=== PATIENT | male | born 1935 | race Two or more races ===

== ENCOUNTER → 2017-09-27 | Outpatient (CLI) | payer MEDICARE ==
[~2017-09-27] MED LIST: BENADRYL25 M1 PO; CLARITHROMYCIN500 MG PO; CLINDAMYCIN HC300 MG PO; DEXILANT60 MG PO; DICLOFENAC SODI75 MG PO; ETODOLAC400 MG PO; FUROSEMIDE40 MG PO; NEXIUM40 MG PO; SANTYL15 GM; SPIRONOLACTONE25 MG PO; SUCRALFATE1 GM PO; TAMSULOSIN HCL0.4 MG PO; TEMAZEPAM15 MG PO; VOLTAREN100 GM TOP; Z.0.ALTACE5 MG PO; Z.0.CELEBREX200 MG PO; Z.0.LASIX40 MG PO; Z.0.NEXIUM40 MG PO
--- NOTE | 2017-09-27 13:43 | Diagnostic Imaging Report ---
PROCEDURE: Frontal and lateral views of the chest. COMPARISON: 11/01/2012 INDICATIONS: COUGH FINDINGS: Lines/tubes: None. Lungs: The lungs are well inflated and clear. There is no evidence of pneumonia or pulmonary edema. Pleura: There is no pleural effusion or pneumothorax. Heart and mediastinum: The cardiac silhouette is borderline in size. Aorta is calcified and markedly tortuous. Bones: No acute bony abnormality. Degenerative changes of thoracic spine. IMPRESSION: 1. No acute cardiopulmonary disease. Dictated by: Matty Go M.D. on 09/27/2017 at 13:45 Electronically approved by: Matty Go M.D. on 09/27/2017 at 13:45
== END ==
LOC: RAD 13:13
DX: R05 Cough (principal); R09.89 Other specified symptoms and signs involving the circulatory and respiratory systems
CPT/HCPCS: 71046

== ENCOUNTER → 2018-01-06 | Outpatient (CLI) | payer MEDICARE ==
--- NOTE | 2018-01-06 14:00 | Diagnostic Imaging Report ---
PROCEDURE: X-RAY CHEST, TWO VIEWS COMPARISON: Patients [facility], , CHEST 2 VIEWS, 09/27/2017, 14:24. INDICATIONS: CHRONIC COUGH FINDINGS: LUNGS: Mild hyperinflated and stable. Pulmonary vascular markings are normal. PLEURA: No effusions or pneumothorax. HEART \T\ MEDIASTINUM: Stable cardiomegaly and marked aortic ectasia.. BONES \T\ SOFT TISSUES: No acute findings. CONCLUSION: Mild stable pulmonary hyperinflation. No acute cardiopulmonary process. Dictated by: Nabeel Paula M.D. on 01/06/2018 at 14:05 Electronically approved by: Nabeel Paula M.D. on 01/06/2018 at 14:05
== END ==
LOC: RAD 13:10
DX: R05 Cough (principal); J44.9 Chronic obstructive pulmonary disease, unspecified
CPT/HCPCS: 71046

== ENCOUNTER 2018-01-30 20:53 | Emergency (ER) | payer MEDICARE ==
[~2018-01-30] VITALS: Ht 182.9 cm; Wt 91.6 kg
== END 2018-01-30 22:00 | disposition home or self-care (01) ==
LOC: ER 20:53
DX: S61.412A Laceration without foreign body of left hand, initial encounter (principal); W22.8XXA Striking against or struck by other objects, initial encounter; Y92.008 Other place in unspecified non-institutional (private) residence as the place of occurrence of the external cause; K21.9 Gastro-esophageal reflux disease without esophagitis
CPT/HCPCS: 99283

== ENCOUNTER → 2019-01-13 | Outpatient (CLI) | payer MEDICARE, OTHER ==
[~2019-01-13] MED LIST changes: +IOPAMIDOL 370 MG/ML 200 ML INFUS..BTL INJ ONE; +SODIUM CHLORIDE 0.9% 50ML 50 ML ONE
[2019-01-13 13:16] LABS: BLOOD UREA NITROGEN 16 mg/dL (7-26); BUN/CREATININE RATIO 21 (6-25); CREATININE, SERUM 0.76 mg/dL (0.72-1.25); EST GLOMERULAR FILTRATION RATE > 60 ML/MIN (60-)
--- NOTE | 2019-01-13 13:45 | Diagnostic Imaging Report ---
EXAMINATION: CHEST 2 VIEWS INDICATION: Shortness of breath COMPARISON: None FINDINGS: LINES/TUBES:None LUNGS:Bilateral upper lobe predominant emphysematous changes. No focal consolidation or pulmonary edema. PLEURA:No pleural effusion or pneumothorax. MEDIASTINUM: The heart size is at the upper limits of normal. Atherosclerotic calcifications of the tortuous thoracic aorta. BONES/SOFT TISSUES:No acute osseous injury. ABDOMEN:No free air under the diaphragm. IMPRESSION: Hyperinflated lungs with upper lobe emphysematous changes. No focal pneumonia or pulmonary edema. Signed by: Abel Sanchez MD on 01/13/2019 1:42 PM
--- NOTE | 2019-01-13 14:26 | Diagnostic Imaging Report ---
EXAM: CT Abdomen and Pelvis WITH intravenous contrast INDICATION: Abdominal pain COMPARISON: None. TECHNIQUE: Abdomen and pelvis were scanned utilizing a multidetector helical scanner from the lung base to the pubic symphysis after administration of IV contrast. Coronal and sagittal reformations were obtained. Routine protocol was performed. Scan was performed when during portal venous phase. IV CONTRAST: 100mL of Isovue 370 ORAL CONTRAST: Water COMPLICATIONS: None RADIATION DOSE: Total DLP: 608.8 mGy*cm Dose modulation, iterative reconstruction, and/or weight based adjustment of the mA/kV was utilized to reduce the radiation dose to as low as reasonably achievable. FINDINGS: LOWER THORAX: No lung base consolidation. Multichamber cardiomegaly. Tortuous thoracic aorta. HEPATOBILIARY: Hepatic steatosis. No focal liver lesions. No biliary ductal dilation. Status post cholecystectomy. SPLEEN: No splenomegaly. PANCREAS: No focal masses or ductal dilatation. ADRENALS: No adrenal nodules. KIDNEYS/URETERS: No hydronephrosis, stones, or solid mass lesions. PELVIC ORGANS/BLADDER: Prostatomegaly to 5.3 cm. The bladder appears unremarkable. PERITONEUM / RETROPERITONEUM: No free air or fluid. LYMPH NODES: No lymphadenopathy. VESSELS: Atherosclerotic calcifications of the nonaneurysmal abdominal aorta and major branches. GI TRACT: Colonic diverticulosis. No CT evidence of diverticulitis. No abnormal bowel wall thickening. No bowel obstruction. Status post appendectomy. BONES AND SOFT TISSUES: Prominent degenerative changes of the lumbar spine. Grade 1 retrolisthesis at L1-2, L2-3, L34. No acute osseous injury or suspicious lytic or blastic lesions. Mild diffuse muscular atrophy. Prominent bilateral inguinal lymph nodes not meeting size criteria for lymphadenopathy. IMPRESSION: No acute findings in the abdomen or pelvis. Colonic diverticulosis with no CT evidence of diverticulitis. Hepatic steatosis. Prostatomegaly. Signed by: Abel Sanchez MD on 01/13/2019 2:23 PM
== END ==
LOC: CT 12:18
PROVIDERS: ATTEND Internal Medicine Gastroenterology
DX: R06.02 Shortness of breath (principal); R10.30 Lower abdominal pain, unspecified; K57.90 Diverticulosis of intestine, part unspecified, without perforation or abscess without bleeding; K76.0 Fatty (change of) liver, not elsewhere classified; N40.0 Benign prostatic hyperplasia without lower urinary tract symptoms
CPT/HCPCS: 36415; 71046; 74177; 82565; 84520; Q9967

== ENCOUNTER → 2019-03-21 | Outpatient (CLI) | payer MEDICARE, OTHER ==
[~2019-03-21] MED LIST changes: -IOPAMIDOL 370 MG/ML 200 ML INFUS..BTL INJ ONE; -SODIUM CHLORIDE 0.9% 50ML 50 ML ONE
--- NOTE | 2019-03-21 13:11 | Diagnostic Imaging Report ---
EXAMINATION: CHEST 2 VIEWS INDICATION: Bronchitis COMPARISON: Chest radiograph of 01/13/2019 FINDINGS: LINES/TUBES:None LUNGS:The lungs are hyperinflated. Mild biapical pleural parenchymal thickening/scarring. No focal consolidation or pulmonary edema. PLEURA:No pleural effusion or pneumothorax. MEDIASTINUM:The cardiomediastinal silhouette appears normal in size and shape. Atherosclerotic calcifications of the tortuous thoracic aorta. BONES/SOFT TISSUES:No acute osseous injury. ABDOMEN:No free air under the diaphragm. IMPRESSION: Hyperinflated lungs. No focal pneumonia or pulmonary edema. Signed by: Abel Sanchez MD on 03/21/2019 1:07 PM
== END ==
LOC: RAD 11:47
DX: R09.89 Other specified symptoms and signs involving the circulatory and respiratory systems (principal); J20.9 Acute bronchitis, unspecified
CPT/HCPCS: 71046

== ENCOUNTER → 2019-04-21 | Outpatient (CLI) | payer MEDICARE, OTHER | LOC: RAD 09:24 | DX: R60.9 Edema, unspecified (principal) | CPT/HCPCS: 93971 ==

== ENCOUNTER 2019-05-12 18:10 | Inpatient (IN) | payer MEDICARE, OTHER ==
[~2019-05-12] VITALS: Ht 182.9 cm; Wt 81.6 kg
[2019-05-12] MEDS ORDERED: ACETAMINOPHEN 325 MG TAB PO ONE (19:19)
[2019-05-12] MEDS ORDERED: CEFEPIME 1GM/NS 0.9% 50 ML 50 ML IV SCH (19:26)
[2019-05-12] MEDS ORDERED: AZITHROMYCIN 500MG/NS 250 ML 250 ML IV ONE (19:26)
[2019-05-12 19:28] LABS: BASOPHILS # (AUTO) 0.1 (0.0-0.1); BASOPHILS % 0.7 % (0.0-1.0); EOSINOPHILS # (AUTO) 0.1 (0.0-0.4); EOSINOPHILS % 1.7 % (0.0-6.0); HEMATOCRIT 35.7 % (38.2-49.6); HEMOGLOBIN 11.2 g/dL (14.0-18.0); LYMPHOCYTES # (AUTO) 0.6 (1.0-3.2); LYMPHOCYTES % 8.1 % (18.0-39.1); MEAN CORPUSCULAR HEMOGLOBIN 29.3 pg (28-32); MEAN CORPUSCULAR HGB CONC 31.4 g/dL (31-35); MEAN CORPUSCULAR VOLUME 93.5 fL (81-99); MONOCYTES # (AUTO) 0.9 (0.2-0.8); MONOCYTES % 11.2 % (4.4-11.3); NEUTROPHILS % 77.6 % (38.7-80.0); PLATELET COUNT 137 x10e3/uL (140-360); RED BLOOD COUNT 3.82 x10e6/uL (4.3-5.7); RED CELL DISTRIBUTION WIDTH 14.3 % (11.7-14.4)
[2019-05-12 19:40] LABS: ALANINE AMINOTRANSFERASE 20 IU/L (0-55); ALBUMIN 3.4 g/dL (3.5-5.0); ALBUMIN/GLOBULIN RATIO 1.2 (0.8-2.0); ALKALINE PHOSPHATASE 99 IU/L (40-150); ANION GAP 13.3 mmol/L (8-16); BLOOD UREA NITROGEN 12 mg/dL (7-26); BUN/CREATININE RATIO 16 (6-25); CALCIUM 9.1 mg/dL (8.4-10.2); CARBON DIOXIDE 28 mmol/L (22-29); CHLORIDE 98 mmol/L (98-107); CREATININE, SERUM 0.75 mg/dL (0.72-1.25); EST GLOMERULAR FILTRATION RATE > 60 ML/MIN (60-); GLUCOSE 90 mg/dL (74-118); POTASSIUM 4.3 mmol/L (3.5-5.1); SODIUM 135 mmol/L (136-145)
[2019-05-12] MEDS ORDERED: SODIUM CHLORIDE 0.9% 1000ML 1,000 ML IV SCH ×2 (19:45→21:51)
[2019-05-12] MEDS ORDERED: ALBUTEROL/IPRATROPIUM 3 ML NEB NEB ONE (19:45)
[2019-05-12] MEDS ORDERED: ACETAMINOPHEN 1000 MG/100 ML IV STA (20:30)
[2019-05-12] MEDS ORDERED: FUROSEMIDE INJ 10 MG/ML 2 ML VIAL ONE (20:38)
[2019-05-12] MEDS ORDERED: FUROSEMIDE INJ 10 MG/ML 4 ML VIAL IV ONE (20:45)
[2019-05-12] MEDS ORDERED: ACETAMINOPHEN 1000 MG/100 ML 100 ML IV ONE (20:45)
--- NOTE | 2019-05-12 20:49 | Diagnostic Imaging Report ---
EXAMINATION: CHEST SINGLE (PORTABLE) INDICATION: Sepsis COMPARISON: 03/21/2019. FINDINGS: LINES/TUBES:None LUNGS:The lungs are hyperinflated. Mild biapical pleural parenchymal thickening/scarring are again noted. New multifocal patchy consolidations are seen in both lungs likely representing pneumonia. PLEURA:No pleural effusion or pneumothorax. MEDIASTINUM:The cardiomediastinal silhouette appears normal in size and shape. Atherosclerotic calcifications of the tortuous thoracic aorta. BONES/SOFT TISSUES:No acute osseous injury. ABDOMEN:No free air under the diaphragm. IMPRESSION: New multifocal patchy consolidations are seen in both lungs compatible with pneumonia. Signed by: Adan Swanson MD on 05/12/2019 8:45 PM
[2019-05-12 20:51] LABS: CLARITY,URINE SL CLOUDY (CLEAR); COLOR,URINE YELLOW (YELLOW); LEUKOCYTE ESTERASE ,URINE NEGATIVE (NEGATIVE); NITRITE,URINE NEGATIVE (NEGATIVE); PROTEIN,URINE DIPSTICK NEGATIVE (NEGATIVE); URINE UROBILINOGEN 0.2 mg/dL (0.2 - 1)
[2019-05-12 20:52] LABS: BILIRUBIN,URINE NEGATIVE (NEGATIVE); KETONES,URINE 1+ (NEGATIVE)
[2019-05-12 21:04] LABS: BACTERIA,URINE FEW /HPF; EPITHELIAL CELLS,URINE MODERATE /LPF; RBC,URINE 0-5 /HPF (0-5); TRANSITIONAL EPI CELLS,URINE FEW
[2019-05-12] MEDS ORDERED: VANCOMYCIN 1GM/NS 250 ML 250 ML IV ONE (21:29)
[2019-05-12] MEDS ORDERED: ONDANSETRON HCL INJ 2MG/ML 2ML 2 MG/ML VIAL IV PRN (22:00)
[2019-05-12] MEDS ORDERED: CEFEPIME 2 GM/NS 0.9% 100 ML 100 ML IV SCH (22:00)
[2019-05-12] MEDS ORDERED: VANCOMYCIN 1GM/NS 250 ML 250 ML IV SCH (22:00)
[2019-05-12 22:22] LABS: CREATINE KINASE MB 2.7 ng/mL (0-5.0)
[2019-05-12] MEDS: OSELTAMIVIR PHOSPHATE 75 MG CAP PO SCH (22:40)
[2019-05-13] VITALS (20 sets, daily range): BP systolic 74–127; BP diastolic 46–84
[2019-05-13] MEDS ORDERED: LISINOPRIL2.5 MG PO (00:47)
[2019-05-13] MEDS ORDERED: MYRBETRIQ25 MG PO (00:47)
[2019-05-13] MEDS ORDERED: DEXILANT60 MG PO (00:47)
[2019-05-13] MEDS ORDERED: CEFUROXIME250 MG PO (00:47)
--- NOTE | 2019-05-13 01:00 | NUR ---
Pt refusing to wear bipap stating "it's too much pressure & hurts nose." RT to come look at bipap. Pt satting 98%on 4L NC. States he "feels better"
--- NOTE | 2019-05-13 03:50 | NUR ---
Page out to Dr. Toney regarding patient status. Pt breathing 40 rpm, tachy in the 110s and refusing to stay sitting in the chair. Pt audibly wheezing and breathing shallow. Pt placed back on bipap Addendum: 05/13/19 at 0428 by Lg Aguilar RN once this started happening. 0500- Dr. Toney ordered 40 mg Lasix IVP now, 0.5 mg ativan PO now, and to stop IV fluids. Monitor patient and call rapid response if pt doesn't respond to treatment. Pt states he does not want to be intubated and does not want compressions done if needed.
[2019-05-13] MEDS ORDERED: FUROSEMIDE INJ 10 MG/ML 4 ML VIAL IV ONE ×2 (04:15→05:20)
[2019-05-13] MEDS ORDERED: LORAZEPAM 0.5 MG TAB PO ONE (04:15)
--- NOTE | 2019-05-13 05:00 | NUR ---
0445-Dr. Toney called to update on pt condition. Wants RN to discuss code status with son and decide if need to transfer to ICU or not 0500-Son wants pt to "be saved," wants us to do everything we can Dr. Toney notified. Dr. Toney said to transfer to ICU, consult Dr. Aparicio, and put in coude tip catheter. Also 40 mg iVP lasix again. Pt still breathing in 40s and anxious. 0530- Falk insertion unsuccessful due to unretractable foreskin. 0545-Pt resting, breathing rate in 20s, HR in 70s. Pt appears comfortable on bipap. Dr. Toney notified of pt's condition, ordered to keep in IMCU and consult Dr. Aparicio. aware of unsuccessful falk attempt, no new order noted. Pt's son at bedside and updated.
[2019-05-13 05:17] LABS: BASOPHILS # (AUTO) 0.1 (0.0-0.1); BASOPHILS % 0.7 % (0.0-1.0); EOSINOPHILS # (AUTO) 0.1 (0.0-0.4); EOSINOPHILS % 0.6 % (0.0-6.0); HEMATOCRIT 38.6 % (38.2-49.6); LYMPHOCYTES % 8.1 % (18.0-39.1); MEAN CORPUSCULAR HEMOGLOBIN 29.8 pg (28-32); MEAN CORPUSCULAR HGB CONC 31.1 g/dL (31-35); MEAN CORPUSCULAR VOLUME 95.8 fL (81-99); MONOCYTES # (AUTO) 1.2 (0.2-0.8); MONOCYTES % 9.5 % (4.4-11.3); NEUTROPHILS # (AUTO) 10.1 (2.1-6.9); NEUTROPHILS % 80.6 % (38.7-80.0); PLATELET COUNT 168 x10e3/uL (140-360); RED BLOOD COUNT 4.03 x10e6/uL (4.3-5.7); RED CELL DISTRIBUTION WIDTH 14.4 % (11.7-14.4)
[2019-05-13 05:38] LABS: ALANINE AMINOTRANSFERASE 29 IU/L (0-55); ALBUMIN 3.7 g/dL (3.5-5.0); ALBUMIN/GLOBULIN RATIO 1.1 (0.8-2.0); ALKALINE PHOSPHATASE 110 IU/L (40-150); ANION GAP 17.3 mmol/L (8-16); BLOOD UREA NITROGEN 12 mg/dL (7-26); BUN/CREATININE RATIO 14 (6-25); CALCIUM 9.1 mg/dL (8.4-10.2); CARBON DIOXIDE 29 mmol/L (22-29); CHLORIDE 97 mmol/L (98-107); CREATININE, SERUM 0.88 mg/dL (0.72-1.25); EST GLOMERULAR FILTRATION RATE > 60 ML/MIN (60-); GLUCOSE 117 mg/dL (74-118); POTASSIUM 4.3 mmol/L (3.5-5.1); SODIUM 139 mmol/L (136-145)
[2019-05-13] MEDS ORDERED: FUROSEMIDE INJ 10 MG/ML 4 ML VIAL ONE (05:51)
[2019-05-13] MEDS: CEFEPIME 2 GM/NS 0.9% 100 ML 100 ML IV SCH ×4 (06:00→17:19)
--- NOTE | 2019-05-13 06:41 | NUR ---
Consult called to Dr. Aparicio's answering service. Awaiting call back.
[2019-05-13 08:34] LABS: ABG HCO3 31 mmol/L (23-28); ABG PCO2 53 mmHg (41-51); ABG PH 7.38 (7.31-7.41); ABG PO2 80 mmHg (80-105)
--- NOTE | 2019-05-13 08:48 | NUR ---
Per Dr Toney, confirmed Dr Aparicio aware of consult. PIV access per [facility]. Plan to move patient to ICU. Supine in recliner and states understanding that he must decrease activity to decrease the exertional dyspnea. Son, Paris Felipe (Joe) at bedside assisting with patient care.
[2019-05-13] MEDS: FUROSEMIDE INJ 10 MG/ML 4 ML VIAL IV SCH ×2 (09:22→20:49)
[2019-05-13] MEDS: OSELTAMIVIR PHOSPHATE 75 MG CAP PO SCH ×2 (09:22→17:20)
--- NOTE | 2019-05-13 09:46 | Diagnostic Imaging Report ---
EXAMINATION: CHEST SINGLE (PORTABLE) INDICATION: Pneumonia. COMPARISON: Chest radiograph 05/12/2019. FINDINGS: Exam is somewhat limited by patient positioning and portable technique. LINES/TUBES:None LUNGS:The lungs are hyperinflated. Mild biapical pleural parenchymal thickening/scarring. Central vascular congestion with mild perihilar and interstitial opacities. Patchy right basilar opacity. PLEURA:No pleural effusion or pneumothorax. MEDIASTINUM:The cardiomediastinal silhouette appears normal in size and shape. Atherosclerotic calcifications of the tortuous thoracic aorta. BONES/SOFT TISSUES:No acute osseous injury. ABDOMEN:No free air under the diaphragm. IMPRESSION: Hyperinflated lungs. Mild interstitial edema. Patchy opacities in the right lower lung could represent alveolar edema, atelectasis, or pneumonia in the appropriate clinical setting. Signed by: Dr. Lakia Salvador MD on 05/13/2019 9:43 AM
[2019-05-13] MEDS: VANCOMYCIN 1GM/NS 250 ML 250 ML IV SCH ×2 (10:37→21:55)
[2019-05-13] MEDS: ACETAMINOPHEN 325 MG TAB PO PRN (11:39)
[2019-05-13] MEDS ORDERED: HYDROCODONE/APAP 5MG-325MG TAB PO PRN (12:00)
[2019-05-13] MEDS: ALBUTEROL/IPRATROPIUM 3 ML NEB NEB SCH ×3 (13:10→22:30)
--- NOTE | 2019-05-13 14:18 | NUR ---
Report given to RAUL Lugo for Room 195; patient transferred via wheeled recliner per his request.
[2019-05-13 14:42] LABS: CREATINE KINASE MB 2.7 ng/mL (0-5.0)
--- NOTE | 2019-05-13 15:36 | History and Physical ---
CHIEF COMPLAINT: Worsening cough and chest congestion. HISTORY OF PRESENT ILLNESS: This is an 83-year-old [place] man, who presents to [facility] with a 3-4 day history of worsening cough and chest congestion. The patient states he has chronic cough. It became much worse this week. The patient states he did receive influenza vaccine this season. The patient underwent a nasal swab for influenza type A and B antigen was found to be positive for type A antigen influenza. The patient also was found to have white blood cell count of 7600 with 77% segmented neutrophils. When the white blood cell count was checked 8 hours later it had increased to 12,500 and 80% segmented neutrophils. The patient was found to have B-type natriuretic peptide level of 167. Chest x-ray performed in the emergency room revealed bilateral multifocal patchy consolidations. The patient was admitted to the intermediate care unit. REVIEW OF SYSTEMS: GENERAL: The patient's weight is stable. He has had fever the last couple of days. No chills. HEENT: No headaches. No vision changes. CARDIOVASCULAR/RESPIRATORY: The patient has chronic cough that became much worse last 3-4 days. Denies any chest pain or tightness. GI: No nausea, vomiting, or constipation. : No UTI symptoms, but he does have BPH. Neuromuscular: No limb weakness. He has chronic swelling in his lower extremities. ALLERGIES: HYDROMORPHONE. HOME MEDICATIONS: 1. Dexilant 60 mg daily. 2. Diclofenac 75 mg b.i.d. 3. Diphenhydramine 25 mg at bedtime. 4. Nexium 40 mg daily. 5. Furosemide 40 mg daily. 6. Lisinopril 5 mg b.i.d. 7. Myrbetriq 25 mg daily. 8. Spironolactone 25 mg b.i.d. 9. Tamsulosin 0.4 mg everyday. SURGICAL HISTORY: Prostate surgery many years ago because of prostate cancer. FAMILY HISTORY: Noncontributory. SOCIAL HISTORY: He is a , lives with adult son. He is a heavy tobacco smoker, but he quit in 1983. No history of alcohol use. PAST MEDICAL HISTORY: 1. Chronic lower extremity edema secondary to venous insufficiency. 2. Benign prostatic hypertrophy. 3. Remote history of prostate cancer. 4. Bilateral knee degenerative joint disease. 5. Hypertensive heart disease. 6. GERD. 7. Hiatal hernia. PHYSICAL EXAMINATION: GENERAL: He is awake, alert, and oriented. He is short of breath. He is very pleasant on exam. His adult son is at bedside. VITAL SIGNS: Height 6 feet, weight is 180 pounds, BMI 24. INTEGUMENT: Skin is warm and dry. No pallor, jaundice, or diaphoresis. HEENT: Anterior sclerae with moist mucous membranes. NECK: Supple. No evidence of jugular venous distention. Cardiovascular: Distant heart sounds. Regular rate and rhythm. LUNGS: The patient has crackles and rhonchi in the bilateral lung soriano. ABDOMEN: Benign. EXTREMITIES: The patient has 3+ edema in bilateral lower legs, but the adult son states this is a chronic issue. NEUROLOGIC: Intact. No gross focal deficits appreciated. IMPRESSION: 1. Bilateral pneumonia. 2. Influenza type A with pneumonia. 3. Acute on chronic diastolic congestive heart failure, likely. 4. Chronic bronchitis. PLAN: 1. We will start oral Tamiflu for the patient's influenza infection. 2. Continue intravenous antibiotics for the patient's pneumonia. 3. Follow blood cultures. 4. Order echocardiogram since the patient appears to have acute on chronic diastolic heart failure. 5. Consult Cardiology. 6. Intensive care unit status. I spent 75 minutes in the care of this intensive care unit patient. MD BENJAMIN Woodson/TRACIE /[id number] SHANNAN
[2019-05-13] MEDS ORDERED: SODIUM CHLORIDE 0.9% 250ML 250 ML IV SCH (17:15)
--- NOTE | 2019-05-13 17:15 | NUR ---
Low blood pressures. Paged and spoke with Dr Toney regarding sbp's 80's. Pt does report breathing better, productive cough, and no current complaints. Orders for one time NS 250cc bolus.
[2019-05-13] MEDS ORDERED: SODIUM CHLORIDE 0.9% 250ML 250 ML ONE (17:28)
--- NOTE | 2019-05-13 19:47 | Consultation ---
DATE OF CONSULTATION: 05/13/2019 Pulmonary Consultation REASON FOR CONSULT: Shortness of breath. HISTORY OF PRESENT ILLNESS: Mr. Felipe is an 83-year-old male known to me as I was taking care of his in the hospital two years ago. He came in with shortness of breath and feeling weak with leg edema and leg swelling. Mr. Felipe is an 83-year-old male, who came to the emergency room with shortness of breath, generalized weakness, leg edema. The shortness of breath was intermittent, but getting worse when he was exerting or laying flat, it did not relieve. So, he decided to come to the emergency room. In the emergency room, the patient was tested positive for flu. He is on IV antibiotics overnight. He was in more distress. The patient underwent ABG, which showed hypercapnic respiratory failure. He was started on BiPAP. He is doing well now. He has bilateral leg edema. REVIEW OF SYSTEMS: GENERAL: Denies any fever, chills. HEAD: Denies any head trauma. ENT: Denies any earache. CVS: Denies any chest pain. RESPIRATORY: Shortness of breath. The rest of the review of systems are negative except as in HPI. PAST MEDICAL HISTORY: Hypertension, hyperlipidemia, history of prostate cancer, COPD, smoked for 30 years, but currently does not smoke. PAST SURGICAL HISTORY: Inguinal hernia repair. FAMILY AND SOCIAL HISTORY: He is currently not smoking. Started smoking around 20 years ago, smoked for 30+ years. PHYSICAL EXAMINATION: VITAL SIGNS: Temperature 100.5, pulse of 86, blood pressure 110/60. T-max of 101.2. HEENT: Head is normocephalic. NECK: Supple. CHEST: Occasional wheezing. Few crackles reduced air entry. HEART: S1-S2 audible. ABDOMEN: Soft, nontender. EXTREMITIES: Bilateral pedal edema, 3+. NEUROLOGICAL: Awake, alert. No focal neurologic deficit. LABORATORY DATA: White count of 12,000, hemoglobin 12.0, platelets 168. Chemistry is within normal limits. BNP 167.8. Chest x-ray, I have reviewed the images, showing patchy alveolar infiltrate. ASSESSMENT/PLAN: Mr. Felipe is an 83-year-old male, who presented to the emergency room with shortness of breath. Influenza tested positive. Current problems: 1. Acute hypoxic respiratory failure. 2. Pneumonia. 3. Influenza. 4. Possible heart failure. PLAN: 1. Agree with IV Lasix, cefepime, and vancomycin. Tamiflu has been started. I will add DuoNebs q.6 hours hourly. 2. Oxygen as needed to keep the O2 saturation more than or equal to 92%. The patient is slightly hypercapnic with almost normal pH. We will do BiPAP if needed. Currently, we can hold off on the BiPAP and try the nasal cannula. I thank, Dr. Toney for this consultation and report. Discussed with the patient's son at bedside. MD LAKSHMI Vaca/TRACIE /[id number]
--- NOTE | 2019-05-13 20:08 | NUR ---
Dr. Toney called to clarify orders. Ordered to consult Dr. Anderson for CHF and afib. Ordered to hold lasix if SBP< 90
--- NOTE | 2019-05-13 20:11 | NUR ---
Consult called to Dr. Chele Anderson regarding CHF and AFIB. Told that pt's HR is 90s-110s, MD stated will see him in the morning. No new orders noted.
[2019-05-14] VITALS (25 sets, daily range): BP systolic 84–122; BP diastolic 37–86
[2019-05-14] MEDS: CEFEPIME 2 GM/NS 0.9% 100 ML 100 ML IV SCH ×3 (00:52→16:40)
[2019-05-14] MEDS: LORAZEPAM 0.5 MG TAB PO PRN ×2 (02:14→17:46)
[2019-05-14] MEDS: ACETAMINOPHEN 325 MG TAB PO PRN (04:00)
[2019-05-14 05:27] LABS: BASOPHILS # (AUTO) 0.1 (0.0-0.1); BASOPHILS % 0.8 % (0.0-1.0); EOSINOPHILS % 0.5 % (0.0-6.0); HEMATOCRIT 34.7 % (38.2-49.6); HEMOGLOBIN 10.9 g/dL (14.0-18.0); LYMPHOCYTES % 17.2 % (18.0-39.1); MEAN CORPUSCULAR HEMOGLOBIN 29.3 pg (28-32); MEAN CORPUSCULAR HGB CONC 31.4 g/dL (31-35); MEAN CORPUSCULAR VOLUME 93.3 fL (81-99); NEUTROPHILS # (AUTO) 3.9 (2.1-6.9); NEUTROPHILS % 64.2 % (38.7-80.0); PLATELET COUNT 146 x10e3/uL (140-360); RED BLOOD COUNT 3.72 x10e6/uL (4.3-5.7); RED CELL DISTRIBUTION WIDTH 13.9 % (11.7-14.4)
[2019-05-14 06:05] LABS: ALANINE AMINOTRANSFERASE 26 IU/L (0-55); ALBUMIN 3.1 g/dL (3.5-5.0); ALBUMIN/GLOBULIN RATIO 1.1 (0.8-2.0); ALKALINE PHOSPHATASE 81 IU/L (40-150); ANION GAP 15.7 mmol/L (8-16); BLOOD UREA NITROGEN 12 mg/dL (7-26); BUN/CREATININE RATIO 16 (6-25); CALCIUM 8.7 mg/dL (8.4-10.2); CARBON DIOXIDE 29 mmol/L (22-29); CHLORIDE 98 mmol/L (98-107); CREATININE, SERUM 0.75 mg/dL (0.72-1.25); EST GLOMERULAR FILTRATION RATE > 60 ML/MIN (60-); GLUCOSE 99 mg/dL (74-118); POTASSIUM 3.7 mmol/L (3.5-5.1); SODIUM 139 mmol/L (136-145)
[2019-05-14] MEDS: ALBUTEROL/IPRATROPIUM 3 ML NEB NEB SCH ×3 (06:38→19:34)
--- NOTE | 2019-05-14 07:30 | Diagnostic Imaging Report ---
EXAMINATION: CHEST SINGLE (PORTABLE) COMPARISON: Chest x-ray 05/13/2019 INDICATION: ^PNEUMONIA CHF ^[id number] ^0632 ^Y DISCUSSION: Frontal view of the chest obtained at 0632 hours. HEART AND MEDIASTINUM: Stable cardiomegaly and aortic tortuosity LINES: None. LUNGS: Diffuse hyperinflation consistent with COPD. Increasing bibasilar airspace opacities. No interstitial edema PLEURA: No pleural effusion or pneumothorax. BONES AND SOFT TISSUES: No focal osseous lesion. The soft tissues are normal. IMPRESSION: Increasing bibasilar airspace opacities, either atelectasis or developing infiltrate. Stable cardiomegaly without evidence of CHF. Signed by: Dr. Nabeel Paula MD on 05/14/2019 7:26 AM
[2019-05-14] MEDS: FUROSEMIDE INJ 10 MG/ML 4 ML VIAL IV SCH ×2 (08:53→20:53)
[2019-05-14] MEDS: OSELTAMIVIR PHOSPHATE 75 MG CAP PO SCH ×2 (08:53→16:41)
[2019-05-14] MEDS: VANCOMYCIN 1GM/NS 250 ML 250 ML IV SCH ×2 (10:12→21:55)
[2019-05-14] MEDS ORDERED: SALINE 0.65% NAS SOLN 1 SPRAY BTL PRN (16:45)
--- NOTE | 2019-05-14 19:35 | Consultation ---
DATE OF CONSULTATION: 05/14/2019 Cardiology consultation. REASON FOR CONSULTATION: Heart failure. HISTORY OF PRESENT ILLNESS: This is an 83-year-old man who has a history of hypertension, congestive heart failure, prior tobacco use, and chronic lower extremity swelling, who presented to the emergency department with progressively worsening shortness of breath. Symptoms were moderate to severe in intensity, progressively worsening, worse with lying flat, associated with lower extremity edema. The patient also reports cough with mild congestion and sputum production. Upon arrival here, the patient was noted to be in hypercapnic respiratory failure, was placed on BiPAP, and received diuretics. He also tested positive for the flu. Currently, he states he is feeling better and he is on nasal cannula. REVIEW OF SYSTEMS: A 12-point review of system was conducted, is negative except as stated above in the HPI. PAST MEDICAL HISTORY: As stated above in the HPI. PAST SURGICAL HISTORY: Prostate cancer. PAST FAMILY HISTORY: Noncontributory. ALLERGIES: HYDROMORPHONE. SOCIAL HISTORY: Prior tobacco use. No current illicit drug, alcohol, or tobacco use. MEDICATIONS: See medications reconciliation form. PHYSICAL EXAMINATION: VITAL SIGNS: Temperature is 97, pulse is 78, respirations are 18, blood pressure is 107/63, oxygen saturation is 96% on 4 L nasal cannula. GENERAL: He is an elderly male, seated at bedside, in no apparent distress. Alert and oriented x3. HEAD: Normocephalic and atraumatic. EYES: Extraocular muscles are intact. Conjunctivae are clear. NECK: No JVD. No bruits. CARDIOVASCULAR: Irregularly irregular. Normal rate. Systolic murmur at the right sternal border. LUNGS: Scattered rales in bilateral lung soriano with rhonchi. ABDOMEN: Soft, nontender, nondistended. EXTREMITIES: Pitting edema. Pulses 1+. SKIN: Warm and dry and intact. NEUROLOGIC: No focal deficits noted. Cranial nerves grossly intact. PSYCHIATRIC: Normal mood and affect. LABORATORY DATA: Reviewed. White blood cell count is 6, hemoglobin is 10.9, platelets are 146, creatinine is 0.75. Troponins are negative x3. Chest x-ray shows new multifocal patchy consolidations on arrival. A 12-lead electrocardiogram not available. TELEMETRY: Monitoring revealed atrial fibrillation with premature ventricular complexes. A 2D echocardiogram showed preserved left ventricular systolic function with an estimated ejection fraction of 55% to 60% with moderate aortic stenosis. IMPRESSION: 1. Acute on chronic diastolic heart failure. 2. Moderate aortic stenosis. 3. Influenza. 4. Pneumonia. 5. Atrial fibrillation. 6. Premature ventricular complexes. 7. Prior tobacco use. 8. Hypertension, currently with hypotension. RECOMMENDATIONS: Continue diuresis. His Lasix 40 mg has been held due to hypotension. We will decrease this to 20 mg to ensure administration. Hold all antihypertensives. Continue flu and pneumonia treatment per primary team. We will need to monitor his aortic stenosis. We will obtain a 12-lead electrocardiogram. Atrial fibrillation appears to be a new diagnosis for him. He will likely need anticoagulation going forward. Chele Anderson DO BM/MODL /[id number]
[2019-05-14] MEDS ORDERED: GUAIFENESIN 600 MG TAB PO PRN (20:30)
[2019-05-15] VITALS (10 sets, daily range): BP systolic 90–147; BP diastolic 48–128
[2019-05-15] MEDS: ALBUTEROL/IPRATROPIUM 3 ML NEB NEB SCH ×4 (01:00→19:37)
[2019-05-15] MEDS: CEFEPIME 2 GM/NS 0.9% 100 ML 100 ML IV SCH ×3 (01:49→17:54)
[2019-05-15] MEDS: LORAZEPAM 0.5 MG TAB PO PRN (03:00)
[2019-05-15 05:42] LABS: BASOPHILS # (AUTO) 0.1 (0.0-0.1); BASOPHILS % 0.9 % (0.0-1.0); EOSINOPHILS # (AUTO) 0.1 (0.0-0.4); EOSINOPHILS % 1.8 % (0.0-6.0); HEMATOCRIT 35.7 % (38.2-49.6); HEMOGLOBIN 11.4 g/dL (14.0-18.0); LYMPHOCYTES # (AUTO) 1.2 (1.0-3.2); LYMPHOCYTES % 22.9 % (18.0-39.1); MEAN CORPUSCULAR HEMOGLOBIN 29.7 pg (28-32); MEAN CORPUSCULAR HGB CONC 31.9 g/dL (31-35); MONOCYTES # (AUTO) 1.1 (0.2-0.8); MONOCYTES % 20.9 % (4.4-11.3); NEUTROPHILS # (AUTO) 2.9 (2.1-6.9); NEUTROPHILS % 53.1 % (38.7-80.0); PLATELET COUNT 144 x10e3/uL (140-360); RED BLOOD COUNT 3.84 x10e6/uL (4.3-5.7); RED CELL DISTRIBUTION WIDTH 13.9 % (11.7-14.4)
[2019-05-15 06:10] LABS: ALANINE AMINOTRANSFERASE 25 IU/L (0-55); ALKALINE PHOSPHATASE 72 IU/L (40-150); ANION GAP 13.6 mmol/L (8-16); BLOOD UREA NITROGEN 10 mg/dL (7-26); BUN/CREATININE RATIO 14 (6-25); CARBON DIOXIDE 31 mmol/L (22-29); CHLORIDE 96 mmol/L (98-107); CREATININE, SERUM 0.71 mg/dL (0.72-1.25); EST GLOMERULAR FILTRATION RATE > 60 ML/MIN (60-); GLUCOSE 99 mg/dL (74-118); POTASSIUM 3.6 mmol/L (3.5-5.1); SODIUM 137 mmol/L (136-145)
--- NOTE | 2019-05-15 08:16 | Diagnostic Imaging Report ---
Examination: Single AP view of the chest. COMPARISON: 05/14/2019 INDICATION: Shortness of breath, CHF, pneumonia DISCUSSION: The lungs are reasonably well inflated and without airspace consolidation, pleural effusion, or pneumothorax. Patchy opacities in the bases are unchanged. Stable enlargement of the cardiac silhouette with tortuous thoracic aorta and pulmonary venous congestion. No overt alveolar edema. No acute osseous abnormality. IMPRESSION: Stable enlargement of the cardiac silhouette with pulmonary venous congestion. Patchy bibasilar opacities may reflect atelectasis or aspiration. Signed by: Dr. Solitario Dyson M.D. on 05/15/2019 8:12 AM
[2019-05-15] MEDS: OSELTAMIVIR PHOSPHATE 75 MG CAP PO SCH ×2 (10:15→17:54)
[2019-05-15] MEDS: VANCOMYCIN 1GM/NS 250 ML 250 ML IV SCH ×2 (10:15→21:31)
[2019-05-15] MEDS: FUROSEMIDE INJ 10 MG/ML 4 ML VIAL IV SCH ×2 (10:15→21:31)
[2019-05-15] MEDS: SALINE 0.65% NAS SOLN 1 SPRAY BTL SCH ×3 (10:30→21:31)
--- NOTE | 2019-05-15 11:34 | Progress Note ---
DATE: 05/15/2019 Cardiology Progress Note SUBJECTIVE: The patient denies chest pain. He reports his shortness of breath has improved. OBJECTIVE: VITAL SIGNS: Temperature 98.4 degrees, pulse 77, respiratory rate 18, blood pressure 107/64, oxygen saturation 97% on 3 L nasal cannula. GENERAL: Awake, alert, in no acute distress. LUNGS: Clear to auscultation bilaterally. No wheezes or crackles. CARDIOVASCULAR: Normal rate, irregularly irregular. Systolic murmur. Normal S1, S2. ABDOMEN: Soft, nontender. EXTREMITIES: 2+ pitting edema. CARDIAC MEDICATIONS: Lasix 20 mg IV q.12 hours. LABORATORY DATA: WBC 5.41, hemoglobin 11.4, hematocrit 35.7, platelets 144. Sodium 137, potassium 3.6, chloride 96, CO2 of 31, BUN 10, creatinine 0.71, BNP 100.2. TELEMETRY: Atrial fibrillation IMPRESSION: 1. [id number] diastolic heart failure. 2. Moderate aortic stenosis. 3. Atrial fibrillation. 4. Influenza A. 5. Pneumonia. 6. Hypertension, currently low normal. 7. Prior smoking. 8. Premature ventricular contractions. RECOMMENDATIONS: Continue diuretics. Antihypertensive therapy is currently on hold due to low blood pressure. Monitor patient closely on telemetry. Antibiotics and antimicrobial treatment per primary service. The patient will need anticoagulants for CVA prophylaxis consider starting Eliquis if no procedures are planned. Thank you for this consult. We will continue to follow. Maria Isabel Mckeon MD ABS/MODL /[id number]
[2019-05-15 11:35] LABS: BASOPHILS # (AUTO) 0.1 (0.0-0.1); BASOPHILS % 1.4 % (0.0-1.0); EOSINOPHILS # (AUTO) 0.1 (0.0-0.4); HEMATOCRIT 38.4 % (38.2-49.6); HEMOGLOBIN 12.5 g/dL (14.0-18.0); LYMPHOCYTES # (AUTO) 1.1 (1.0-3.2); LYMPHOCYTES % 22.2 % (18.0-39.1); MEAN CORPUSCULAR HEMOGLOBIN 29.8 pg (28-32); MEAN CORPUSCULAR HGB CONC 32.6 g/dL (31-35); MEAN CORPUSCULAR VOLUME 91.4 fL (81-99); NEUTROPHILS # (AUTO) 2.7 (2.1-6.9); PLATELET COUNT 169 x10e3/uL (140-360); RED CELL DISTRIBUTION WIDTH 13.9 % (11.7-14.4)
--- NOTE | 2019-05-15 12:22 | NUR ---
CALL PLACED TO DR ELIZALDE TO ASK FOR LTAC AND [facility] AWAIT CALLBACK
--- NOTE | 2019-05-15 12:29 | NUR ---
DR ELIZALDE RETURNED CALL OK FOR LTAC EVAL AND TRANSFER WHEN ACCEPTED TO FLOOR TELE BED
--- NOTE | 2019-05-15 14:26 | NUR ---
Spoke to patient regarding LTAC. Patient adamantly refuses LTAC, states multiple members of his family have gone and they do not receive the level of quality care that is received here. Patient lives at home, has his son to assist. Informed patient that he is on 2 antibiotics that are IV for his pneumonia. Also patient is on nasal cannula and patient states he is not on O2 at home. Also discussed ambulatory status. Patient is refusing to go to any lower level facility; he just wants to return home when his MD releases him. Patient states he is going to discuss this with Dr. Marie tomorrow. CM left phone number to follow up after pt's visit with MD castaneda.
[2019-05-16] MEDS: ALBUTEROL/IPRATROPIUM 3 ML NEB NEB SCH ×4 (00:05→19:37)
[2019-05-16] MEDS: CEFEPIME 2 GM/NS 0.9% 100 ML 100 ML IV SCH ×3 (01:01→17:10)
[2019-05-16 03:00] VITALS: BP 94/50
[2019-05-16 06:10] LABS: ALANINE AMINOTRANSFERASE 21 IU/L (0-55); ALBUMIN 3.1 g/dL (3.5-5.0); ALBUMIN/GLOBULIN RATIO 0.9 (0.8-2.0); ALKALINE PHOSPHATASE 76 IU/L (40-150); BLOOD UREA NITROGEN 14 mg/dL (7-26); BUN/CREATININE RATIO 17 (6-25); CALCIUM 9.1 mg/dL (8.4-10.2); CARBON DIOXIDE 33 mmol/L (22-29); CHLORIDE 97 mmol/L (98-107); CREATININE, SERUM 0.82 mg/dL (0.72-1.25); EST GLOMERULAR FILTRATION RATE > 60 ML/MIN (60-); GLUCOSE 148 mg/dL (74-118); SODIUM 142 mmol/L (136-145)
[2019-05-16 07:11] VITALS: BP 87/60
[2019-05-16 07:12] VITALS: BP 87/60
[2019-05-16] MEDS ORDERED: POTASSIUM CHLORIDE 10MEQ EA PO ONE ×2 (07:30→09:00)
[2019-05-16] MEDS: FUROSEMIDE INJ 10 MG/ML 4 ML VIAL IV SCH ×2 (07:53→20:43)
[2019-05-16] MEDS: SALINE 0.65% NAS SOLN 1 SPRAY BTL SCH ×3 (07:53→20:43)
--- NOTE | 2019-05-16 08:26 | Diagnostic Imaging Report ---
EXAM: CHEST SINGLE (PORTABLE) DATE: 05/16/2019 5:00 AM INDICATION: Shortness of breath, pneumonia, CHF COMPARISON: 05/15/2019 FINDINGS: The trachea is midline. Again identified are bibasilar opacities suggestive of atelectasis. There is no evidence for large focal consolidation, pneumothorax, or significant pleural effusion. The cardiomediastinal silhouette is stable in appearance. No acute osseous abnormality is identified. IMPRESSION: Stable appearing patchy bibasilar opacities identified suggestive of atelectasis. Signed by: Dr. Zino Nance MD on 05/16/2019 8:22 AM
[2019-05-16] MEDS: MUPIROCIN 2% OINT 22 GM TUBE TOP SCH ×2 (10:13→17:10)
[2019-05-16] MEDS: OSELTAMIVIR PHOSPHATE 75 MG CAP PO SCH ×2 (10:13→17:10)
[2019-05-16] MEDS: VANCOMYCIN 1GM/NS 250 ML 250 ML IV SCH ×2 (10:13→20:43)
[2019-05-16] MEDS ORDERED: POTASSIUM CHLORIDE 10MEQ EA PO SCH (10:45)
--- NOTE | 2019-05-16 12:47 | NUR ---
DR. PLAZA SPOKE W THE PT REGARDING LTACH. PT AGREED. CHOICE LETTER WAS PROVIDED. PT CHOSE [facility]. STATES HE DID NOT WANT DR. SANTACRUZ INVOLVED IN HIS CARE AT [facility]. STATES THE DOC WAS AWARE. DR PLAZA NOTIFIED. PT REQUESTED TO HAVE SON PRESENT WHILE SIGNING MOT. CM WILL RETURN WHEN THE SON ARRIVES.
--- NOTE | 2019-05-16 13:38 | NUR ---
MOT INITIATED. COPY GIVEN TO PAPER HANDLER. RAUL FRANKS NOTIFIED.
[2019-05-16 15:42] VITALS: BP 109/73
[2019-05-16] MEDS: APIXABAN 5 MG TABLET PO SCH (17:10)
--- NOTE | 2019-05-16 18:59 | Progress Note ---
DATE: 05/16/2019 Cardiology Progress Note SUBJECTIVE: The patient denies chest pain. He reports his shortness of breath has improved. OBJECTIVE: VITAL SIGNS: Temperature 97.3 degrees, pulse 75, respiratory rate 20, blood pressure 87/60, oxygen saturation 96% on 1 L nasal cannula. GENERAL: Awake, alert, in no acute distress. LUNGS: Clear to auscultation bilaterally. No wheeze. No crackles. CARDIOVASCULAR: Normal rate, irregularly irregular. Systolic murmur. Normal S1 and S2. ABDOMEN: Soft, nontender. EXTREMITIES: 2+ pitting edema, right greater than left. CARDIAC MEDICATIONS: Furosemide 20 mg IV q.12 hours. LABORATORY DATA: Sodium 142, potassium 3, chloride 97, CO2 of 33, BUN 14, and creatinine 0.82. TELEMETRY: Atrial fibrillation. IMPRESSION: 1. Iprcf-rn-ovpvaaz diastolic heart failure. 2. Moderate aortic stenosis. 3. Atrial fibrillation. 4. Influenza A. 5. Pneumonia. 6. Hypertension. 7. Currently, hypotensive. 8. Prior smoker. 9. Premature ventricular contractions. RECOMMENDATIONS: Continue diuretics. Antihypertensive therapy is currently on hold due to low blood pressure. Monitor the patient closely. Continue telemetry. Antibiotics and antimicrobial therapies per Primary Service. The patient will need anticoagulation for CVA prophylaxis. Consider starting Eliquis if no procedures are planned. Thank you for this consult. We will continue to follow. Maria Isabel Mckeon MD ABS/MODL /[id number]
--- NOTE | 2019-05-16 19:05 | NUR ---
Charge nurse called and informed me that patient needs to be discharged to [facility] office called and spoke to Melissa
[2019-05-16 19:45] VITALS: BP 126/78
[2019-05-16 20:00] VITALS: BP 128/72
--- NOTE | 2019-05-16 22:04 | NUR ---
SPOKE TO MISTY WITH [facility] AND WAS INFORMED THAT REFERRAL WAS CANCELLED FOR UNKNOWN REASON. PER MISTY PRESS LOADER AT [facility] WILL NEED TO CONTACT THEM AGAIN TOMORROW ON 05/17/19 TO REINITIATE THE TRANSFER.
[2019-05-17] VITALS (7 sets, daily range): BP systolic 110–126; BP diastolic 65–79
[2019-05-17] MEDS: ALBUTEROL/IPRATROPIUM 3 ML NEB NEB SCH ×4 (01:20→20:45)
[2019-05-17] MEDS: CEFEPIME 2 GM/NS 0.9% 100 ML 100 ML IV SCH ×3 (01:45→16:28)
[2019-05-17 05:37] LABS: BASOPHILS # (AUTO) 0.1 (0.0-0.1); EOSINOPHILS # (AUTO) 0.3 (0.0-0.4); EOSINOPHILS % 4.8 % (0.0-6.0); HEMATOCRIT 35.4 % (38.2-49.6); HEMOGLOBIN 11.2 g/dL (14.0-18.0); LYMPHOCYTES # (AUTO) 1.3 (1.0-3.2); LYMPHOCYTES % 25.7 % (18.0-39.1); MEAN CORPUSCULAR HEMOGLOBIN 29.2 pg (28-32); MEAN CORPUSCULAR HGB CONC 31.6 g/dL (31-35); MEAN CORPUSCULAR VOLUME 92.4 fL (81-99); MONOCYTES # (AUTO) 0.6 (0.2-0.8); MONOCYTES % 12.1 % (4.4-11.3); NEUTROPHILS # (AUTO) 2.9 (2.1-6.9); NEUTROPHILS % 55.8 % (38.7-80.0); PLATELET COUNT 145 x10e3/uL (140-360); RED BLOOD COUNT 3.83 x10e6/uL (4.3-5.7); RED CELL DISTRIBUTION WIDTH 13.9 % (11.7-14.4)
[2019-05-17 06:00] LABS: ANION GAP 15.4 mmol/L (8-16); CARBON DIOXIDE 30 mmol/L (22-29); CHLORIDE 100 mmol/L (98-107); CREATININE, SERUM 0.78 mg/dL (0.72-1.25); EST GLOMERULAR FILTRATION RATE > 60 ML/MIN (60-); GLUCOSE 185 mg/dL (74-118); POTASSIUM 3.4 mmol/L (3.5-5.1); SODIUM 142 mmol/L (136-145)
[2019-05-17 06:23] LABS: BLOOD UREA NITROGEN 14 mg/dL (7-26); BUN/CREATININE RATIO 18 (6-25)
--- NOTE | 2019-05-17 06:47 | NUR ---
patient condition throughout the night was stable, patient refused cardiac monitoring.
--- NOTE | 2019-05-17 07:00 | NUR ---
Pt received resting in chair, refusing to rest in bed. No bed in room, nurse client service manager aware. Alert and oriented to x4. Pt with 4L nasal cannula. Oriented to staff and surroundings. Encouraged to press call knox if help needed. Emotional support given. Call knox within reach. Will monitor
[2019-05-17] MEDS: APIXABAN 5 MG TABLET PO SCH ×2 (08:17→16:28)
[2019-05-17] MEDS: FUROSEMIDE INJ 10 MG/ML 4 ML VIAL IV SCH ×2 (08:17→20:47)
[2019-05-17] MEDS: OSELTAMIVIR PHOSPHATE 75 MG CAP PO SCH ×2 (08:17→16:28)
[2019-05-17] MEDS: MUPIROCIN 2% OINT 22 GM TUBE TOP SCH ×2 (08:17→16:28)
[2019-05-17] MEDS: SALINE 0.65% NAS SOLN 1 SPRAY BTL SCH ×3 (09:00→20:47)
--- NOTE | 2019-05-17 09:20 | NUR ---
SPOKE Joaquin WEAVER AT [facility] REGARDING [facility] REFERRAL. STATES THE STATES THE PT CANCELLED THE REFERRAL, BECAUSE HE DID NOT WANT TO BE THERE FOR A 25DAY LOS. STATES THE PT AND DR. PLAZA ONLY WANTED THE PT TO STAY FOR 7DAYS. MEG STATES SHE SPOKE W BEDSIDE NURSE, CAPO CARTER.
[2019-05-17] MEDS: VANCOMYCIN 1GM/NS 250 ML 250 ML IV SCH ×2 (09:45→22:00)
[2019-05-17] MEDS ORDERED: POTASSIUM CHLORIDE 10MEQ EA PO ONE (12:15)
--- NOTE | 2019-05-17 12:22 | NUR ---
SPOKE WITH DR Heide PLAZA REGARDING DC PLAN NEEDS 1 MORE DAY OF IV ABX PLAN DC HOME TOMORROW WITH HOME HEALTH CARE PT AGREEABLE
--- NOTE | 2019-05-17 12:30 | NUR ---
Pt given bath in chair. Emotional support given. Call knox within reach. Will monitor
--- NOTE | 2019-05-17 14:00 | NUR ---
DC PLAN: MET W THE PT AT THE BEDSIDE. DISCUSSED HH CHOICE. STATES HE WILL USE THE COMPANY RECOMMENDED BY HIS MD. CHOICE LETTER WAS SIGNED AND COPY TO PT AND COPY TO CHART. PT CHOSE [facility]. REFERRAL WAS FAXED TO [facility] AT OFF: [phone] / FAX: [phone]. PT STATES HE WILL HAVE A CXR TOMORROW AND THE MD WILL DETERMINE IF HE DISCHARGES HOME. PT INQUIRED ABOUT HOME O2. STATES HE WILL NEED IT. INFORMED THE PT I WILL LET THE NURSE KNOW TO DO A HOME O2 EVAL. PT VERBALIZED UNDERSTANDING. PT SIGNED CONSENT FOR HOME O2 IF NEEDED.
--- NOTE | 2019-05-17 14:14 | NUR ---
WOUND CARE CONSULT FOR SCREENING RELATED TO LOW CORNELIO SCORE OF 12. 83 YO MALE, NURSING CONTINUES TO MAINTAIN PT IS ON A STRICT PUP AND INTERVENTION; PT IS SITTING UP IN CHAIR. SKIN ASSESSMENT COMPLETE NO WOUNDS OR ADVERSE SKIN CONDITION NOTED. PT EDUCATED ON NECESSITY OF FREQUENT TURNING, AMBULATING WITH ASSISTANCE, AND GETTING OUT OF BED FOR MEALS AND MUCH TOLERATED. WOUND CARE TO BE RECONSULTED WITH ANY FUTURE SKIN OR WOUND RELATED ISSUES. Addendum: 05/17/19 at 1439 by Didi Dove RN Amended: Links added.
--- NOTE | 2019-05-17 15:05 | NUR ---
As per respiratory therapist, pt's saturation was 95% on room air while walking. Pt does not qualify for home oxygen
--- NOTE | 2019-05-17 15:27 | NUR ---
Nutrition Screen Note RD Recommendation for Physician: -Continue cardiac diet Plan of Care: RD following, monitoring for tolerance and adequacy Nutrition reason for involvement: Length of stay Primary Diagnose(s): influenza A, multifocal pneumonia, respiratory distress, sepsis PMH: chronic lower extremity edema secondary to venous insufficiency, BPH, prostate cancer, bilateral knee degenerative joint disease, hypertensive heart disease, GERD, and hiatal hernia Ht: 72 in Wt:180 lb BMI: 24.4 kg/m2 IBW:[address] Assessment: 05/17/19) Chart reviewed. Labs and meds reviewed. Pt is an 83 year old male admitted with influenza A, multifocal pneumonia, respiratory distress, and sepsis. Pt stated he does not like the hospital food; therefore, family has been bringing him meals. Pt reports he has been consuming most of the meals his family provides. No wt loss reported and pt mentioned he usually weighs 180 lbs. No N/V/D/C noted. Will continue to monitor. Current Diet: Cardiac diet Malnutrition Evaluation (05/17/19) The patient does not meet criteria for a specified degree of malnutrition at this time. Will re-evaluate at follow-up as appropriate. Diet Education Needs Assessment: RD is available for diet education as needed. Nutrition Care Level: low Signed: Renate Oneill, RD, LD
--- NOTE | 2019-05-17 18:21 | NUR ---
All meds given as ordered. Emotional support given. Call knox within reach. Will endorse to next shift
--- NOTE | 2019-05-17 19:00 | NUR ---
Received patient from day nurse, patient is alert and oriented x4. patient is sitting in a recliner and states prefer the recliner, bed was offered but he refused stated that he is anxious of beds, safety and fall precautions [id number] as per hospital protocol. patient is currently stable and will continue to monitor.
--- NOTE | 2019-05-17 19:53 | Progress Note ---
DATE: 05/17/2019 Cardiology Progress Note SUBJECTIVE: The patient denies chest pain or shortness of breath. OBJECTIVE: VITAL SIGNS: Temperature 98.2 degrees, pulse 73, respiratory rate 18, blood pressure 113/65, oxygen saturation 97% on 2 L nasal cannula. GENERAL: Awake, alert, in no acute distress. LUNGS: Clear to auscultation bilaterally. No wheezes or crackles. CARDIOVASCULAR: Normal rate. Irregularly irregular. Systolic murmur. Normal S1, S2. ABDOMEN: Soft, nontender. EXTREMITIES: 2+ pitting edema. CARDIAC MEDICATIONS: Apixaban 5 mg p.o. b.i.d., furosemide 20 mg IV q.12 hours. LABORATORY DATA: WBC 5.22, hemoglobin 11.2, hematocrit 35.4, platelets 145. Sodium 142, potassium 3.4, chloride 100, CO2 of 30, BUN 14, and creatinine 0.78. TELEMETRY: Atrial fibrillation. IMPRESSION: 1. Fjzvl-yo-cwmxcfg diastolic heart failure. 2. Moderate aortic stenosis. 3. Atrial fibrillation. 4. Influenza A. 5. Pneumonia. 6. Hypertension, currently normotensive without antihypertensive therapy, prior smoker. 7. Premature ventricular contractions. RECOMMENDATIONS: Continue diuretics. Antihypertensive therapy is currently on hold due to hypotension earlier this admission. Gradually resume antihypertensive therapy as blood pressure improves. Monitor the patient closely on telemetry. Anticoagulation is indicated for CVA prophylaxis as CHADS-VASc score is 3. This was discussed with the patient, who expressed understanding. Antibiotics and antimicrobial therapy per primary service. He was instructed to follow up with his outpatient java software engineer upon discharge for further management of his atrial fibrillation. Thank you for this consult. We will continue to follow. Maria Isabel Mckeon MD ABS/MODL /[id number]
[2019-05-18] VITALS: BP 122/70
--- NOTE | 2019-05-18 | NUR ---
patient rounded and he is stable
[2019-05-18] MEDS: ALBUTEROL/IPRATROPIUM 3 ML NEB NEB SCH ×2 (00:45→08:02)
[2019-05-18] MEDS: CEFEPIME 2 GM/NS 0.9% 100 ML 100 ML IV SCH ×2 (01:00→09:49)
[2019-05-18 03:45] VITALS: BP 126/76
[2019-05-18 05:43] LABS: BASOPHILS # (AUTO) 0.1 (0.0-0.1); EOSINOPHILS # (AUTO) 0.5 (0.0-0.4); EOSINOPHILS % 5.4 % (0.0-6.0); HEMATOCRIT 36.4 % (38.2-49.6); HEMOGLOBIN 11.4 g/dL (14.0-18.0); LYMPHOCYTES # (AUTO) 1.7 (1.0-3.2); LYMPHOCYTES % 20.6 % (18.0-39.1); MEAN CORPUSCULAR HEMOGLOBIN 29.1 pg (28-32); MEAN CORPUSCULAR HGB CONC 31.3 g/dL (31-35); MEAN CORPUSCULAR VOLUME 92.9 fL (81-99); MONOCYTES # (AUTO) 1.1 (0.2-0.8); MONOCYTES % 13.5 % (4.4-11.3); NEUTROPHILS # (AUTO) 4.9 (2.1-6.9); NEUTROPHILS % 58.9 % (38.7-80.0); PLATELET COUNT 148 x10e3/uL (140-360); RED BLOOD COUNT 3.92 x10e6/uL (4.3-5.7); RED CELL DISTRIBUTION WIDTH 13.8 % (11.7-14.4)
[2019-05-18 05:57] LABS: ANION GAP 13.6 mmol/L (8-16); BLOOD UREA NITROGEN 17 mg/dL (7-26); BUN/CREATININE RATIO 22 (6-25); CALCIUM 9.6 mg/dL (8.4-10.2); CARBON DIOXIDE 34 mmol/L (22-29); CHLORIDE 94 mmol/L (98-107); CREATININE, SERUM 0.77 mg/dL (0.72-1.25); EST GLOMERULAR FILTRATION RATE > 60 ML/MIN (60-); GLUCOSE 114 mg/dL (74-118); POTASSIUM 4.6 mmol/L (3.5-5.1); SODIUM 137 mmol/L (136-145)
--- NOTE | 2019-05-18 07:00 | NUR ---
Pt received s/p CXR. Emotional support given. Will monitor
[2019-05-18 08:00] VITALS: BP_SYST 105; BP_SYST 126; BP_DIAS 66; BP_DIAS 76
--- NOTE | 2019-05-18 08:32 | Diagnostic Imaging Report ---
Chest, 2 views, 05/18/2019. History: Shortness of breath. Comparison: 05/16/2019. Findings: The cardiomediastinal silhouette and pulmonary vasculature are within normal limits. Patchy bibasilar opacities are slightly decreased. Degenerative changes are present in both shoulders. There are no acute osseous or soft tissue abnormalities. Impression: Slight decrease in bibasilar opacities. Signed by: Craig Iyer on 05/18/2019 8:29 AM
[2019-05-18] MEDS: MUPIROCIN 2% OINT 22 GM TUBE TOP SCH (09:49)
[2019-05-18] MEDS: SALINE 0.65% NAS SOLN 1 SPRAY BTL SCH (09:49)
[2019-05-18] MEDS: APIXABAN 5 MG TABLET PO SCH (09:49)
[2019-05-18] MEDS: FUROSEMIDE INJ 10 MG/ML 4 ML VIAL IV SCH (09:49)
[2019-05-18] MEDS: VANCOMYCIN 1GM/NS 250 ML 250 ML IV SCH (10:00)
--- NOTE | 2019-05-18 10:24 | NUR ---
Pt with vancomycin trough 19.8. Dr. Marie made aware. Pt requesting to have home oxygen. Dr. Viji Marie requested for another eval. Will follow up
[2019-05-18 11:30] VITALS: BP 136/91
--- NOTE | 2019-05-18 12:59 | NUR ---
Home o2 evaluation was completed. Pt dropped to 85% on exertion. Order to set up home oxygen. Pt had previously signed choice for [facility]. Choice letter on chart. Erik Oscar ([phone]) with [employer] was notified of referral and is at the hospital to worm picker clinicals and deliver portables. HOME HEALTH DISCHARGE NOTE PATIENT ADDRESS WHERE SERVICE WILL BE RECEIVED: [address] [place] [address], [place] [address] PATIENT CONTACT NUMBER: [phone] NAME OF HOME HEALTH COMPANY: [employer] TELEPHONE/FAX NUMBER OF COMPANY: P [phone] / F [phone] ADDRESS OF Home Environmental Systems: [address] [place] [address] [id number], [place] [address] SERVICES TO RECEIVE: SN/PT/OT ANTICIPATED DATE SERVICES WILL BEGIN: May 19, 2019 Please call the company above if you have not received a call to schedule a home visit within 24 hours of discharge. MORENITA spoke to Marely with intake at [facility]. Informed her pt will discharge today. Gave her pt's cell phone number. She will call him and schedule a time to admit. Home health information was printed and given to pt. IMM letter delivered and explained to pt. He verbalized understanding. States he is ready to go home. Signed copy placed in chart. Copy to pt.
[2019-05-18] MEDS ORDERED: ELIQUIS5 M1 PO (13:34)
[2019-05-18] MEDS ORDERED: AUGMENTIN 875-1 EACH PO (13:34)
--- NOTE | 2019-05-18 14:35 | NUR ---
Pt given discharge instructions regarding meds, diet, activities, s/s to report, and follow up with MDs. Pt verbalized understanding of teaching. Emotional support given. Escorted to son's car with home oxygen tank
--- NOTE | 2019-05-18 16:28 | Progress Note ---
DATE: 05/18/2019 Cardiology Progress Note SUBJECTIVE: The patient denies chest pain or shortness of breath. He is awaiting home O2 evaluation for discharge. OBJECTIVE: VITAL SIGNS: Temperature 98.2 degrees, pulse 88, respiratory rate 19, blood pressure 105/66, and oxygen saturation 96% on 4 L nasal cannula. GENERAL: Elderly man, no acute distress. Awake and alert. LUNGS: Clear to auscultation bilaterally. No wheezes or crackles. CARDIOVASCULAR: Normal rate. Irregularly irregular systolic murmur. Normal S1 and S2. ABDOMEN: Soft and nontender. EXTREMITIES: 3+ pitting edema. CARDIAC MEDICATIONS: Apixaban 5 mg p.o. b.i.d. and furosemide 20 mg IV q.12 hours. LABORATORY DATA: WBC 8.38, hemoglobin 11.4, hematocrit 36.4, and platelets 148. Sodium 137, potassium 4.6, chloride 94, CO2 34, BUN 17, and creatinine 0.77. TELEMETRY: Atrial fibrillation. IMAGING DATA: Chest x-ray, slight decrease in bibasilar opacities. IMPRESSION: 1. Ctlae-aj-idjiufv diastolic heart failure. 2. Moderate aortic stenosis. 3. Atrial fibrillation. 4. Influenza A. 5. Pneumonia. 6. Hypertension, currently normotensive without antihypertensive therapy. 7. Prior smoker. 8. Premature ventricular contractions. RECOMMENDATIONS: Continue Eliquis for CVA prophylaxis. He was instructed to follow up with his outpatient barrel lathe operator inside, Dr. Nunez on discharge to resume his antihypertensive therapy once blood pressure improves. The patient's rate is controlled. Monitor closely on telemetry. Continue IV diuretics while admitted. Antibiotics and antimicrobial therapy per primary service. Thank you for this consult. We will continue to follow. Maria Isabel Mckeon MD ABS/MODL /[id number]
== END 2019-05-18 14:45 | disposition home health service (06) | DRG 291 ==
LOC: ER 18:10 → ERHOLD 22:12 → IMCU 23:40 → ICU 05-13 15:00 → IMCU 05-14 23:17
PROVIDERS: ADMIT Internal Medicine; ATTEND Internal Medicine
DX: I11.0 Hypertensive heart disease with heart failure (principal); J15.9 Unspecified bacterial pneumonia; J96.01 Acute respiratory failure with hypoxia; J44.0 Chronic obstructive pulmonary disease with (acute) lower respiratory infection; J09.X2 Influenza due to identified novel influenza A virus with other respiratory manifestations; C61 Malignant neoplasm of prostate; J44.9 Chronic obstructive pulmonary disease, unspecified; Z87.891 Personal history of nicotine dependence; I49.3 Ventricular premature depolarization; I35.0 Nonrheumatic aortic (valve) stenosis
CPT/HCPCS: 36415; 36600; 71045; 71046; 80048; 80053; 80202; 81001; 82550; 82553; 82805; 83605; 83735; 83880; 84484; 85025; 87040; 87070; 87086; 87205; 87400; 93005; 93306; 94640; 94660; 96374; 99284; J0456; J0692; J1940; J2405; J3370; J7030; J7050

== ENCOUNTER 2020-07-13 14:08 | Emergency (ER) | payer MEDICARE ==
[~2020-07-13] VITALS: Ht 182.9 cm; Wt 81.6 kg
[~2020-07-13 14:08] MED LIST changes: +AUGMENTIN 875-1 EACH PO; +CEFUROXIME250 MG PO; +ELIQUIS5 M1 PO; +LISINOPRIL2.5 MG PO; +MYRBETRIQ25 MG PO
== END 2020-07-13 17:11 | disposition home or self-care (01) ==
LOC: ER 14:14
DX: M25.552 Pain in left hip (principal); M25.551 Pain in right hip; W18.30XA Fall on same level, unspecified, initial encounter; Y93.01 Activity, walking, marching and hiking; Y92.008 Other place in unspecified non-institutional (private) residence as the place of occurrence of the external cause; I50.9 Heart failure, unspecified; K21.9 Gastro-esophageal reflux disease without esophagitis
CPT/HCPCS: 72170; 99283

== ENCOUNTER 2020-07-23 10:47 | Inpatient (IN) | payer MEDICARE, OTHER ==
[~2020-07-23] VITALS: Ht 182.9 cm; Wt 81.6 kg
[2020-07-23] MEDS ORDERED: ALBUTEROL/IPRATROPIUM 3 ML NEB NEB ONE (11:15)
[2020-07-23] MEDS: CEFTRIAXONE SOD 1 GM in SODIUM CHLORIDE 0.9% 50ML 50 ML IV SCH (12:08)
[2020-07-23 12:24] LABS: BASOPHILS % 0.4 % (0.0-1.0); EOSINOPHILS % 0.1 % (0.0-6.0); HEMOGLOBIN 11.4 g/dL (14.0-18.0); LYMPHOCYTES # (AUTO) 0.7 (1.0-3.2); MEAN CORPUSCULAR HEMOGLOBIN 27.5 pg (28-32); MEAN CORPUSCULAR HGB CONC 32.6 g/dL (31-35); MEAN CORPUSCULAR VOLUME 84.5 fL (81-99); MONOCYTES # (AUTO) 0.9 (0.2-0.8); MONOCYTES % 11.2 % (4.4-11.3); NEUTROPHILS # (AUTO) 6.2 (2.1-6.9); NEUTROPHILS % 78.4 % (38.7-80.0); PLATELET COUNT 317 x10e3/uL (140-360); RED BLOOD COUNT 4.14 x10e6/uL (4.3-5.7)
[2020-07-23] MEDS: AZITHROMYCIN 500MG/NS 250 ML 250 ML IV SCH (12:34)
[2020-07-23 12:41] LABS: INR 1.37; PROTHROMBIN TIME 17.8 seconds (11.9-14.5)
[2020-07-23 12:42] LABS: PARTIAL THROMBOPLASTIN TIME 46.2 seconds (23.8-35.5)
[2020-07-23 12:54] LABS: ALANINE AMINOTRANSFERASE 44 IU/L (0-55); ALBUMIN 2.4 g/dL (3.5-5.0); ALBUMIN/GLOBULIN RATIO 0.6 (0.8-2.0); ALKALINE PHOSPHATASE 68 IU/L (40-150); ANION GAP 15.5 mmol/L (8-16); BLOOD UREA NITROGEN 12 mg/dL (7-26); BUN/CREATININE RATIO 17 (6-25); CALCIUM 8.8 mg/dL (8.4-10.2); CARBON DIOXIDE 31 mmol/L (22-29); CHLORIDE 88 mmol/L (98-107); CREATINE KINASE 388 IU/L (30-200); CREATININE, SERUM 0.71 mg/dL (0.72-1.25); EST GLOMERULAR FILTRATION RATE > 60 ML/MIN (60-); GLUCOSE 111 mg/dL (74-118); MAGNESIUM 1.7 MG/DL (1.3-2.1); POTASSIUM 3.5 mmol/L (3.5-5.1); SODIUM 131 mmol/L (136-145)
[2020-07-23] MEDS ORDERED: DEXAMETHASONE SOD PHOS 10 MG/1 ML VIAL IV SCH (14:00)
[2020-07-23] MEDS ORDERED: ONDANSETRON HCL INJ 2MG/ML 2ML 2 MG/ML VIAL IV PRN (14:00)
[2020-07-23 15:34] LABS: CLARITY,URINE CLEAR (CLEAR); COLOR,URINE YELLOW (YELLOW); KETONES,URINE NEGATIVE (NEGATIVE); LEUKOCYTE ESTERASE ,URINE NEGATIVE (NEGATIVE); NITRITE,URINE NEGATIVE (NEGATIVE); PROTEIN,URINE DIPSTICK NEGATIVE (NEGATIVE)
[2020-07-23 15:40] LABS: BACTERIA,URINE FEW /HPF; EPITHELIAL CELLS,URINE FEW /LPF; MUCUS,URINE FEW (RARE); RBC,URINE 0-5 /HPF (0-5)
[2020-07-23] MEDS ORDERED: ALBUTEROL/IPRATROPIUM 3 ML NEB NEB PRN ×2 (16:15→17:45)
[2020-07-23] MEDS: METHYLPREDNISOLONE SOD SUCC 125 MG/2ML VIAL IV SCH ×2 (16:20→22:39)
[2020-07-23] MEDS: ASCORBIC ACID 500 MG TAB PO SCH (16:20)
[2020-07-23] MEDS: FUROSEMIDE 40 MG TAB PO SCH (16:21)
[2020-07-23] MEDS: APIXABAN 5 MG TABLET PO SCH (16:21)
[2020-07-23] MEDS ORDERED: REMDESIVIR 200MG/NS 100ML 200 MG in SODIUM CHLORIDE 0.9% 100 ML 100 ML IV ONE (17:00)
[2020-07-23] MEDS ORDERED: ENOXAPARIN SOD INJ 40 MG/0.4 ML SYR SC SCH (17:00)
[2020-07-23 19:05] VITALS: BP 128/60
[2020-07-23 21:35] VITALS: BP 96/66
[2020-07-23 22:00] VITALS: BP 96/66
[2020-07-24] VITALS (8 sets, daily range): BP systolic 106–131; BP diastolic 53–86
[2020-07-24 05:11] LABS: BASOPHILS % 0.2 % (0.0-1.0); HEMATOCRIT 31.7 % (38.2-49.6); HEMOGLOBIN 10.5 g/dL (14.0-18.0); LYMPHOCYTES # (AUTO) 0.5 (1.0-3.2); LYMPHOCYTES % 11.2 % (18.0-39.1); MEAN CORPUSCULAR HEMOGLOBIN 27.2 pg (28-32); MEAN CORPUSCULAR HGB CONC 33.1 g/dL (31-35); MEAN CORPUSCULAR VOLUME 82.1 fL (81-99); MONOCYTES # (AUTO) 0.2 (0.2-0.8); MONOCYTES % 4.8 % (4.4-11.3); NEUTROPHILS # (AUTO) 3.9 (2.1-6.9); NEUTROPHILS % 83.2 % (38.7-80.0); PLATELET COUNT 314 x10e3/uL (140-360); RED BLOOD COUNT 3.86 x10e6/uL (4.3-5.7); RED CELL DISTRIBUTION WIDTH 15.1 % (11.7-14.4)
[2020-07-24 05:38] LABS: ALANINE AMINOTRANSFERASE 54 IU/L (0-55); ALBUMIN 2.1 g/dL (3.5-5.0); ALBUMIN/GLOBULIN RATIO 0.5 (0.8-2.0); ALKALINE PHOSPHATASE 63 IU/L (40-150); ANION GAP 17.5 mmol/L (8-16); BLOOD UREA NITROGEN 15 mg/dL (7-26); BUN/CREATININE RATIO 24 (6-25); CALCIUM 8.7 mg/dL (8.4-10.2); CARBON DIOXIDE 28 mmol/L (22-29); CHLORIDE 91 mmol/L (98-107); CREATININE, SERUM 0.62 mg/dL (0.72-1.25); EST GLOMERULAR FILTRATION RATE > 60 ML/MIN (60-); GLUCOSE 140 mg/dL (74-118); POTASSIUM 3.5 mmol/L (3.5-5.1); SODIUM 133 mmol/L (136-145)
[2020-07-24] MEDS: METHYLPREDNISOLONE SOD SUCC 125 MG/2ML VIAL IV SCH ×2 (06:03→13:23)
[2020-07-24 06:06] LABS: CREATINE KINASE MB 5.5 ng/mL (0-5.0)
[2020-07-24] MEDS ORDERED: SODIUM CHLORIDE 0.9% 250ML 250 ML ONE (08:41)
[2020-07-24] MEDS: ASCORBIC ACID 500 MG TAB PO SCH ×4 (08:45→16:22)
[2020-07-24] MEDS: APIXABAN 5 MG TABLET PO SCH ×2 (08:45→16:22)
[2020-07-24] MEDS: FUROSEMIDE 40 MG TAB PO SCH ×2 (08:45→16:22)
[2020-07-24] MEDS: CHOLECALCIFEROL 400 UNIT TAB PO SCH (08:45)
[2020-07-24] MEDS: ZINC SULFATE 220 MG CAP PO SCH (08:45)
[2020-07-24] MEDS ORDERED: CHOLECALCIFEROL 1,000 UNIT TAB PO SCH (09:00)
[2020-07-24] MEDS ORDERED: AZITHROMYCIN 500MG/NS 250 ML 250 ML IV SCH (09:00)
[2020-07-24] MEDS ORDERED: CEFTRIAXONE SOD 2 GM 100 ML IV SCH (09:00)
[2020-07-24] MEDS ORDERED: ZINC SULFATE 220 MG CAP PO SCH (09:00)
[2020-07-24] MEDS: AZITHROMYCIN 500MG/NS 250 ML 250 ML IV SCH (11:08)
[2020-07-24] MEDS: CEFTRIAXONE SOD 1 GM in SODIUM CHLORIDE 0.9% 50ML 50 ML IV SCH (11:30)
[2020-07-24] MEDS ORDERED: REMDESIVIR 100MG/NS 100ML 100 MG in SODIUM CHLORIDE 0.9% 100 ML 100 ML IV SCH (17:00)
[2020-07-24] MEDS ORDERED: REMDESIVIR 100MG/NS 100ML 100 MG IV SCH (20:15)
[2020-07-25] VITALS (8 sets, daily range): BP systolic 111–136; BP diastolic 58–98
[2020-07-25 05:36] LABS: BASOPHILS % 0.2 % (0.0-1.0); HEMATOCRIT 34.9 % (38.2-49.6); HEMOGLOBIN 11.3 g/dL (14.0-18.0); LYMPHOCYTES # (AUTO) 0.8 (1.0-3.2); LYMPHOCYTES % 8.4 % (18.0-39.1); MEAN CORPUSCULAR HEMOGLOBIN 27.2 pg (28-32); MEAN CORPUSCULAR HGB CONC 32.4 g/dL (31-35); MEAN CORPUSCULAR VOLUME 84.1 fL (81-99); MONOCYTES # (AUTO) 0.8 (0.2-0.8); MONOCYTES % 8.4 % (4.4-11.3); NEUTROPHILS # (AUTO) 7.9 (2.1-6.9); NEUTROPHILS % 81.7 % (38.7-80.0); PLATELET COUNT 451 x10e3/uL (140-360); RED BLOOD COUNT 4.15 x10e6/uL (4.3-5.7); RED CELL DISTRIBUTION WIDTH 15.2 % (11.7-14.4)
[2020-07-25 05:51] LABS: ALANINE AMINOTRANSFERASE 91 IU/L (0-55); ALBUMIN 2.3 g/dL (3.5-5.0); ALBUMIN/GLOBULIN RATIO 0.6 (0.8-2.0); ALKALINE PHOSPHATASE 83 IU/L (40-150); ANION GAP 14.5 mmol/L (8-16); BLOOD UREA NITROGEN 22 mg/dL (7-26); BUN/CREATININE RATIO 33 (6-25); CALCIUM 8.6 mg/dL (8.4-10.2); CARBON DIOXIDE 33 mmol/L (22-29); CHLORIDE 93 mmol/L (98-107); CREATININE, SERUM 0.66 mg/dL (0.72-1.25); EST GLOMERULAR FILTRATION RATE > 60 ML/MIN (60-); GLUCOSE 124 mg/dL (74-118); POTASSIUM 3.5 mmol/L (3.5-5.1); SODIUM 137 mmol/L (136-145)
[2020-07-25 07:49] LABS: LYMPHOCYTES % (MANUAL) 3 % (19-48); MONOCYTES % (MANUAL) 5 % (3.4-9.0); NEUTROPHILS % (MANUAL) 87 % (40-74); PLATELET ESTIMATE SLIGHTLY INCREASED
[2020-07-25 07:50] LABS: ANISOCYTOSIS SLIGHT; ELLIPTOCYTE, RBC SLIGHT; TEAR DROP CELLS FEW
[2020-07-25 07:52] LABS: PLATELET MORPHOLOGY COMMENT RARE EDTA CLUMPING; RBC MORPHOLOGY COMMENT NORMAL
[2020-07-25] MEDS: ASCORBIC ACID 500 MG TAB PO SCH ×4 (09:00→16:50)
[2020-07-25] MEDS: FUROSEMIDE 40 MG TAB PO SCH ×2 (10:04→16:50)
[2020-07-25] MEDS: CHOLECALCIFEROL 400 UNIT TAB PO SCH (10:04)
[2020-07-25] MEDS: DEXAMETHASONE SOD PHOS 10 MG/1 ML VIAL IV SCH (10:04)
[2020-07-25] MEDS: AZITHROMYCIN 500MG/NS 250 ML 250 ML IV SCH (10:04)
[2020-07-25] MEDS: APIXABAN 5 MG TABLET PO SCH ×2 (10:04→16:50)
[2020-07-25] MEDS: ZINC SULFATE 220 MG CAP PO SCH (10:04)
[2020-07-25] MEDS: CEFTRIAXONE SOD 1 GM in SODIUM CHLORIDE 0.9% 50ML 50 ML IV SCH (11:30)
[2020-07-25] MEDS: REMDESIVIR 100MG/NS 100ML 100 MG in SODIUM CHLORIDE 0.9% 100 ML 100 ML IV SCH (14:46)
[2020-07-25] MEDS ORDERED: REMDESIVIR 200MG/NS 100ML 200 MG IV ONE (15:00)
[2020-07-25] MEDS ORDERED: POTASSIUM CHLORIDE 10MEQ EA PO ONE (18:00)
[2020-07-25] MEDS: FUROSEMIDE INJ 10 MG/ML 4 ML VIAL IV SCH (18:05)
[2020-07-26] VITALS (9 sets, daily range): BP systolic 102–120; BP diastolic 59–101
[2020-07-26] MEDS: ASCORBIC ACID 500 MG TAB PO SCH ×4 (09:00→16:30)
[2020-07-26] MEDS: AZITHROMYCIN 500MG/NS 250 ML 250 ML IV SCH (09:00)
[2020-07-26] MEDS: CHOLECALCIFEROL 400 UNIT TAB PO SCH (09:20)
[2020-07-26] MEDS: ZINC SULFATE 220 MG CAP PO SCH (09:20)
[2020-07-26] MEDS: DEXAMETHASONE SOD PHOS 10 MG/1 ML VIAL IV SCH (09:20)
[2020-07-26] MEDS: APIXABAN 5 MG TABLET PO SCH ×2 (09:20→16:31)
[2020-07-26] MEDS: FUROSEMIDE INJ 10 MG/ML 4 ML VIAL IV SCH ×2 (09:20→16:30)
[2020-07-26] MEDS: AMIODARONE HCL 200 MG TAB PO SCH ×3 (09:21→21:48)
[2020-07-26 09:27] LABS: BASOPHILS % 0.2 % (0.0-1.0); HEMATOCRIT 37.5 % (38.2-49.6); HEMOGLOBIN 11.6 g/dL (14.0-18.0); LYMPHOCYTES # (AUTO) 1.2 (1.0-3.2); LYMPHOCYTES % 9.4 % (18.0-39.1); MEAN CORPUSCULAR HEMOGLOBIN 27.4 pg (28-32); MEAN CORPUSCULAR HGB CONC 30.9 g/dL (31-35); MONOCYTES # (AUTO) 1.1 (0.2-0.8); MONOCYTES % 8.4 % (4.4-11.3); NEUTROPHILS # (AUTO) 10.2 (2.1-6.9); NEUTROPHILS % 80.9 % (38.7-80.0); PLATELET COUNT 500 x10e3/uL (140-360); RED BLOOD COUNT 4.24 x10e6/uL (4.3-5.7); RED CELL DISTRIBUTION WIDTH 15.5 % (11.7-14.4)
[2020-07-26 09:31] LABS: MEAN CORPUSCULAR VOLUME 88.4 fL (81-99)
[2020-07-26 09:49] LABS: MAGNESIUM 1.9 MG/DL (1.3-2.1)
[2020-07-26 09:53] LABS: ALANINE AMINOTRANSFERASE 65 IU/L (0-55); ALBUMIN 2.5 g/dL (3.5-5.0); ALBUMIN/GLOBULIN RATIO 0.7 (0.8-2.0); ALKALINE PHOSPHATASE 78 IU/L (40-150); ANION GAP 13.1 mmol/L (8-16); BLOOD UREA NITROGEN 22 mg/dL (7-26); BUN/CREATININE RATIO 33 (6-25); CALCIUM 8.6 mg/dL (8.4-10.2); CARBON DIOXIDE 39 mmol/L (22-29); CHLORIDE 94 mmol/L (98-107); CREATININE, SERUM 0.67 mg/dL (0.72-1.25); EST GLOMERULAR FILTRATION RATE > 60 ML/MIN (60-); GLUCOSE 139 mg/dL (74-118); POTASSIUM 3.1 mmol/L (3.5-5.1); SODIUM 143 mmol/L (136-145)
[2020-07-26] MEDS ORDERED: MAGNESIUM SULF 1GRAM/DEXTROSE 100 ML IV ONE (10:15)
[2020-07-26] MEDS ORDERED: POTASSIUM CHLORIDE 40 MEQ in SODIUM CHLORIDE 0.9% 250ML 250 ML IV ONE (10:15)
[2020-07-26] MEDS: CEFTRIAXONE SOD 1 GM in SODIUM CHLORIDE 0.9% 50ML 50 ML IV SCH (10:30)
[2020-07-26] MEDS ORDERED: POTASSIUM CHLORIDE 20MEQ/100ML 0 ML ONE (10:50)
[2020-07-26] MEDS: BALSAM PERU/CASTOR OIL 60 GM OINT...G. TP SCH (11:20)
[2020-07-26] MEDS: REMDESIVIR 100MG/NS 100ML 100 MG in SODIUM CHLORIDE 0.9% 100 ML 100 ML IV SCH (14:00)
[2020-07-26] MEDS ORDERED: METHYLPREDNISOLONE SOD SUCC 125 MG/2ML VIAL IV ONE (15:45)
[2020-07-26 16:27] LABS: ABG HCO3 46 mmol/L (22-26); ABG PCO2 87 mmHg (35-45); ABG PH 7.33 (7.35-7.45); ABG PO2 104 mmHg (80-105); ABG TCO2 49
[2020-07-26 23:07] LABS: ANION GAP 12.7 mmol/L (8-16); BLOOD UREA NITROGEN 20 mg/dL (7-26); BUN/CREATININE RATIO 31 (6-25); CALCIUM 8.3 mg/dL (8.4-10.2); CHLORIDE 90 mmol/L (98-107); CREATININE, SERUM 0.65 mg/dL (0.72-1.25); EST GLOMERULAR FILTRATION RATE > 60 ML/MIN (60-); GLUCOSE 147 mg/dL (74-118); MAGNESIUM 2.1 MG/DL (1.3-2.1); POTASSIUM 3.7 mmol/L (3.5-5.1); SODIUM 143 mmol/L (136-145)
[2020-07-26 23:09] LABS: CARBON DIOXIDE 44 mmol/L (22-29)
[2020-07-27] VITALS (7 sets, daily range): BP systolic 115–129; BP diastolic 69–84
[2020-07-27] MEDS: ZINC SULFATE 220 MG CAP PO SCH (08:24)
[2020-07-27] MEDS: DEXAMETHASONE SOD PHOS 10 MG/1 ML VIAL IV SCH (08:24)
[2020-07-27] MEDS: BALSAM PERU/CASTOR OIL 60 GM OINT...G. TP SCH (08:24)
[2020-07-27] MEDS: FUROSEMIDE INJ 10 MG/ML 4 ML VIAL IV SCH ×2 (08:24→16:56)
[2020-07-27] MEDS: CHOLECALCIFEROL 400 UNIT TAB PO SCH (08:24)
[2020-07-27] MEDS: AMIODARONE HCL 200 MG TAB PO SCH ×2 (08:24→16:56)
[2020-07-27] MEDS: AZITHROMYCIN 500MG/NS 250 ML 250 ML IV SCH (08:24)
[2020-07-27] MEDS: ASCORBIC ACID 500 MG TAB PO SCH ×4 (08:24→16:56)
[2020-07-27] MEDS: APIXABAN 5 MG TABLET PO SCH ×2 (08:24→16:56)
[2020-07-27 10:03] LABS: BASOPHILS % 0.1 % (0.0-1.0); HEMATOCRIT 39.1 % (38.2-49.6); HEMOGLOBIN 11.8 g/dL (14.0-18.0); LYMPHOCYTES # (AUTO) 0.7 (1.0-3.2); LYMPHOCYTES % 6.3 % (18.0-39.1); MEAN CORPUSCULAR HEMOGLOBIN 27.8 pg (28-32); MEAN CORPUSCULAR HGB CONC 30.2 g/dL (31-35); MONOCYTES % 8.6 % (4.4-11.3); NEUTROPHILS # (AUTO) 9.5 (2.1-6.9); NEUTROPHILS % 83.8 % (38.7-80.0); PLATELET COUNT 432 x10e3/uL (140-360); RED BLOOD COUNT 4.25 x10e6/uL (4.3-5.7); RED CELL DISTRIBUTION WIDTH 15.1 % (11.7-14.4)
[2020-07-27 10:13] LABS: ALANINE AMINOTRANSFERASE 55 IU/L (0-55); ALBUMIN 2.5 g/dL (3.5-5.0); ALBUMIN/GLOBULIN RATIO 0.7 (0.8-2.0); ALKALINE PHOSPHATASE 78 IU/L (40-150); ANION GAP 9.5 mmol/L (8-16); BLOOD UREA NITROGEN 24 mg/dL (7-26); BUN/CREATININE RATIO 36 (6-25); CALCIUM 8.7 mg/dL (8.4-10.2); CHLORIDE 91 mmol/L (98-107); CREATININE, SERUM 0.66 mg/dL (0.72-1.25); EST GLOMERULAR FILTRATION RATE > 60 ML/MIN (60-); GLUCOSE 145 mg/dL (74-118); POTASSIUM 3.5 mmol/L (3.5-5.1); SODIUM 141 mmol/L (136-145)
[2020-07-27 10:17] LABS: CARBON DIOXIDE 44 mmol/L (22-29)
[2020-07-27] MEDS: CEFTRIAXONE SOD 1 GM in SODIUM CHLORIDE 0.9% 50ML 50 ML IV SCH (10:39)
[2020-07-27] MEDS: REMDESIVIR 100MG/NS 100ML 100 MG in SODIUM CHLORIDE 0.9% 100 ML 100 ML IV SCH (14:50)
[2020-07-27] MEDS: ACETAMINOPHEN 325 MG TAB PO PRN (22:01)
[2020-07-28] VITALS (8 sets, daily range): BP systolic 122–138; BP diastolic 62–87
[2020-07-28 06:04] LABS: BASOPHILS % 0.1 % (0.0-1.0); EOSINOPHILS % 0.1 % (0.0-6.0); HEMATOCRIT 36.5 % (38.2-49.6); HEMOGLOBIN 10.9 g/dL (14.0-18.0); LYMPHOCYTES # (AUTO) 0.8 (1.0-3.2); LYMPHOCYTES % 7.4 % (18.0-39.1); MEAN CORPUSCULAR HEMOGLOBIN 27.3 pg (28-32); MEAN CORPUSCULAR HGB CONC 29.9 g/dL (31-35); MEAN CORPUSCULAR VOLUME 91.5 fL (81-99); MONOCYTES # (AUTO) 1.2 (0.2-0.8); MONOCYTES % 10.9 % (4.4-11.3); NEUTROPHILS # (AUTO) 9.1 (2.1-6.9); NEUTROPHILS % 80.6 % (38.7-80.0); PLATELET COUNT 391 x10e3/uL (140-360); RED BLOOD COUNT 3.99 x10e6/uL (4.3-5.7)
[2020-07-28 06:34] LABS: ALANINE AMINOTRANSFERASE 49 IU/L (0-55); ALBUMIN 2.4 g/dL (3.5-5.0); ALBUMIN/GLOBULIN RATIO 0.7 (0.8-2.0); ALKALINE PHOSPHATASE 70 IU/L (40-150); ANION GAP 12.3 mmol/L (8-16); BLOOD UREA NITROGEN 25 mg/dL (7-26); BUN/CREATININE RATIO 40 (6-25); CALCIUM 8.7 mg/dL (8.4-10.2); CHLORIDE 86 mmol/L (98-107); CREATININE, SERUM 0.62 mg/dL (0.72-1.25); EST GLOMERULAR FILTRATION RATE > 60 ML/MIN (60-); GLUCOSE 105 mg/dL (74-118); POTASSIUM 3.3 mmol/L (3.5-5.1); SODIUM 144 mmol/L (136-145)
[2020-07-28 06:45] LABS: CARBON DIOXIDE 49 mmol/L (22-29)
[2020-07-28] MEDS: ASCORBIC ACID 500 MG TAB PO SCH ×5 (09:00→17:12)
[2020-07-28 09:13] LABS: LYMPHOCYTES % (MANUAL) 6 % (19-48); MONOCYTES % (MANUAL) 9 % (3.4-9.0); NEUTROPHILS % (MANUAL) 85 % (40-74)
[2020-07-28] MEDS: AZITHROMYCIN 500MG/NS 250 ML 250 ML IV SCH (09:13)
[2020-07-28] MEDS: APIXABAN 5 MG TABLET PO SCH ×2 (09:13→17:12)
[2020-07-28] MEDS: AMIODARONE HCL 200 MG TAB PO SCH ×2 (09:13→17:12)
[2020-07-28] MEDS: ZINC SULFATE 220 MG CAP PO SCH (09:13)
[2020-07-28] MEDS: FUROSEMIDE INJ 10 MG/ML 4 ML VIAL IV SCH ×2 (09:13→17:12)
[2020-07-28] MEDS: DEXAMETHASONE SOD PHOS 10 MG/1 ML VIAL IV SCH (09:13)
[2020-07-28] MEDS: CHOLECALCIFEROL 400 UNIT TAB PO SCH (09:13)
[2020-07-28] MEDS: BALSAM PERU/CASTOR OIL 60 GM OINT...G. TP SCH (09:27)
[2020-07-28] MEDS ORDERED: POTASSIUM CHLORIDE 20 MEQ TAB CR PO NR (10:40)
[2020-07-28] MEDS ORDERED: SODIUM CHLORIDE 0.9% 50ML 50 ML ONE (11:42)
[2020-07-28] MEDS ORDERED: CEFTRIAXONE SOD 1 GM VIAL ONE (11:42)
[2020-07-28] MEDS: CEFTRIAXONE SOD 1 GM in SODIUM CHLORIDE 0.9% 50ML 50 ML IV SCH (11:43)
[2020-07-28] MEDS ORDERED: POTASSIUM CHLORIDE 10MEQ/100ML 200 ML IV ONE ×2 (12:00→15:00)
[2020-07-28] MEDS: REMDESIVIR 100MG/NS 100ML 100 MG in SODIUM CHLORIDE 0.9% 100 ML 100 ML IV SCH (14:47)
[2020-07-28 19:45] LABS: BLOOD UREA NITROGEN 24 mg/dL (7-26); BUN/CREATININE RATIO 39 (6-25); CALCIUM 8.5 mg/dL (8.4-10.2); CHLORIDE 83 mmol/L (98-107); CREATININE, SERUM 0.62 mg/dL (0.72-1.25); EST GLOMERULAR FILTRATION RATE > 60 ML/MIN (60-); GLUCOSE 136 mg/dL (74-118); POTASSIUM 3.8 mmol/L (3.5-5.1); SODIUM 144 mmol/L (136-145)
[2020-07-28 19:46] LABS: ANION GAP 14.8 mmol/L (8-16)
[2020-07-28 19:47] LABS: CARBON DIOXIDE > 50 mmol/L (22-29)
[2020-07-28 20:40] LABS: ABG PCO2 88 mmHg (35-45); ABG PH 7.45 (7.35-7.45); ABG PO2 122 mmHg (80-105)
[2020-07-28 20:41] LABS: ABG HCO3 61 mmol/L (22-26); ABG TCO2 50
[2020-07-29] VITALS (21 sets, daily range): BP systolic 95–146; BP diastolic 57–91
[2020-07-29 06:06] LABS: BASOPHILS % 0.1 % (0.0-1.0); EOSINOPHILS % 0.2 % (0.0-6.0); HEMATOCRIT 36.7 % (38.2-49.6); HEMOGLOBIN 11.4 g/dL (14.0-18.0); LYMPHOCYTES % 8.4 % (18.0-39.1); MEAN CORPUSCULAR HEMOGLOBIN 28.8 pg (28-32); MEAN CORPUSCULAR HGB CONC 31.1 g/dL (31-35); MEAN CORPUSCULAR VOLUME 92.7 fL (81-99); MONOCYTES # (AUTO) 1.3 (0.2-0.8); MONOCYTES % 10.8 % (4.4-11.3); NEUTROPHILS # (AUTO) 9.7 (2.1-6.9); NEUTROPHILS % 79.4 % (38.7-80.0); PLATELET COUNT 356 x10e3/uL (140-360); RED BLOOD COUNT 3.96 x10e6/uL (4.3-5.7); RED CELL DISTRIBUTION WIDTH 15.1 % (11.7-14.4)
[2020-07-29 06:29] LABS: ALANINE AMINOTRANSFERASE 48 IU/L (0-55); ALBUMIN 2.4 g/dL (3.5-5.0); ALBUMIN/GLOBULIN RATIO 0.7 (0.8-2.0); ALKALINE PHOSPHATASE 74 IU/L (40-150); BLOOD UREA NITROGEN 25 mg/dL (7-26); BUN/CREATININE RATIO 46 (6-25); CALCIUM 8.7 mg/dL (8.4-10.2); CHLORIDE 82 mmol/L (98-107); CREATININE, SERUM 0.54 mg/dL (0.72-1.25); EST GLOMERULAR FILTRATION RATE > 60 ML/MIN (60-); GLUCOSE 101 mg/dL (74-118); POTASSIUM 3.6 mmol/L (3.5-5.1); SODIUM 144 mmol/L (136-145)
[2020-07-29 06:52] LABS: ANION GAP 14.6 mmol/L (8-16)
[2020-07-29 06:54] LABS: CARBON DIOXIDE 51 mmol/L (22-29)
[2020-07-29] MEDS ORDERED: FUROSEMIDE INJ 10 MG/ML 4 ML VIAL ONE (08:47)
[2020-07-29] MEDS: DEXAMETHASONE SOD PHOS 10 MG/1 ML VIAL IV SCH (08:53)
[2020-07-29] MEDS: AMIODARONE HCL 200 MG TAB PO SCH ×2 (08:55→16:28)
[2020-07-29] MEDS: CHOLECALCIFEROL 400 UNIT TAB PO SCH (08:55)
[2020-07-29] MEDS: ZINC SULFATE 220 MG CAP PO SCH (08:55)
[2020-07-29] MEDS: ASCORBIC ACID 500 MG TAB PO SCH ×2 (08:56→16:28)
[2020-07-29] MEDS: AZITHROMYCIN 500MG/NS 250 ML 250 ML IV SCH (08:57)
[2020-07-29] MEDS: FUROSEMIDE INJ 10 MG/ML 4 ML VIAL IV SCH ×2 (08:57→16:28)
[2020-07-29] MEDS: APIXABAN 5 MG TABLET PO SCH ×2 (09:00→16:28)
[2020-07-29] MEDS: BALSAM PERU/CASTOR OIL 60 GM OINT...G. TP SCH (09:00)
[2020-07-29] MEDS: ACETAZOLAMIDE 250 MG TAB PO SCH (09:00)
[2020-07-29] MEDS: CEFTRIAXONE SOD 1 GM in SODIUM CHLORIDE 0.9% 50ML 50 ML IV SCH (11:30)
[2020-07-29] MEDS: DEXMEDETOMIDINE 200MCG/NS 50ML 50 ML IV SCH (14:14)
[2020-07-29] MEDS ORDERED: HALOPERIDOL LACTATE 5 MG/ML VIAL IV PRN (15:15)
[2020-07-29] MEDS: NYSTATIN SUSPENSION 5 ML UDC PO SCH ×2 (16:28→22:00)
[2020-07-30] VITALS (7 sets, daily range): BP systolic 101–135; BP diastolic 61–80
[2020-07-30] MEDS: ALBUTEROL SULFATE HFA 8GM INHALATION AEROSOL INH SCH ×3 (01:00→17:45)
[2020-07-30] MEDS: NYSTATIN SUSPENSION 5 ML UDC PO SCH ×3 (05:52→23:15)
[2020-07-30] MEDS ORDERED: SODIUM CHLORIDE 0.9% 250ML 250 ML ONE (09:14)
[2020-07-30] MEDS: DEXAMETHASONE SOD PHOS 10 MG/1 ML VIAL IV SCH (09:37)
[2020-07-30] MEDS: FUROSEMIDE INJ 10 MG/ML 4 ML VIAL IV SCH ×2 (09:37→17:45)
[2020-07-30] MEDS: ASCORBIC ACID 500 MG TAB PO SCH ×2 (09:38→17:45)
[2020-07-30] MEDS: AMIODARONE HCL 200 MG TAB PO SCH ×2 (09:38→17:45)
[2020-07-30] MEDS: ZINC SULFATE 220 MG CAP PO SCH (09:38)
[2020-07-30] MEDS: APIXABAN 5 MG TABLET PO SCH ×2 (09:38→17:45)
[2020-07-30] MEDS: CHOLECALCIFEROL 400 UNIT TAB PO SCH (09:38)
[2020-07-30] MEDS: ACETAZOLAMIDE 250 MG TAB PO SCH (09:38)
[2020-07-30] MEDS: AZITHROMYCIN 500MG/NS 250 ML 250 ML IV SCH (09:38)
[2020-07-30] MEDS: BALSAM PERU/CASTOR OIL 60 GM OINT...G. TP SCH (09:38)
[2020-07-30 09:46] LABS: BASOPHILS % 0.1 % (0.0-1.0); EOSINOPHILS # (AUTO) 0.1 (0.0-0.4); EOSINOPHILS % 0.4 % (0.0-6.0); HEMOGLOBIN 13.6 g/dL (14.0-18.0); LYMPHOCYTES # (AUTO) 1.3 (1.0-3.2); LYMPHOCYTES % 9.6 % (18.0-39.1); MEAN CORPUSCULAR HEMOGLOBIN 27.3 pg (28-32); MEAN CORPUSCULAR HGB CONC 30.9 g/dL (31-35); MEAN CORPUSCULAR VOLUME 88.2 fL (81-99); MONOCYTES # (AUTO) 1.5 (0.2-0.8); MONOCYTES % 11.2 % (4.4-11.3); NEUTROPHILS # (AUTO) 10.5 (2.1-6.9); NEUTROPHILS % 77.8 % (38.7-80.0); PLATELET COUNT 481 x10e3/uL (140-360); RED BLOOD COUNT 4.99 x10e6/uL (4.3-5.7)
[2020-07-30 09:58] LABS: ALANINE AMINOTRANSFERASE 42 IU/L (0-55); ALBUMIN 2.8 g/dL (3.5-5.0); ALBUMIN/GLOBULIN RATIO 0.7 (0.8-2.0); ALKALINE PHOSPHATASE 84 IU/L (40-150); ANION GAP 11.4 mmol/L (8-16); BLOOD UREA NITROGEN 30 mg/dL (7-26); BUN/CREATININE RATIO 45 (6-25); CALCIUM 9.2 mg/dL (8.4-10.2); CHLORIDE 87 mmol/L (98-107); CREATININE, SERUM 0.67 mg/dL (0.72-1.25); EST GLOMERULAR FILTRATION RATE > 60 ML/MIN (60-); GLUCOSE 138 mg/dL (74-118); POTASSIUM 3.4 mmol/L (3.5-5.1); SODIUM 139 mmol/L (136-145)
[2020-07-30 10:09] LABS: CARBON DIOXIDE 44 mmol/L (22-29)
[2020-07-30] MEDS: CEFTRIAXONE SOD 1 GM in SODIUM CHLORIDE 0.9% 50ML 50 ML IV SCH (11:27)
[2020-07-30] MEDS: DEXMEDETOMIDINE 200MCG/NS 50ML 50 ML IV SCH (13:00)
[2020-07-30] MEDS ORDERED: ONDANSETRON HCL INJ 2MG/ML 2ML 2 MG/ML VIAL IV PRN (14:15)
[2020-07-30] MEDS ORDERED: ALBUTEROL/IPRATROPIUM 3 ML NEB NEB SCH (15:00)
[2020-07-31] VITALS (21 sets, daily range): BP systolic 104–141; BP diastolic 49–96
[2020-07-31] MEDS: ALBUTEROL SULFATE HFA 8GM INHALATION AEROSOL INH SCH ×3 (03:00→11:00)
[2020-07-31] MEDS ORDERED: ACETAMINOPHEN 325 MG TAB ONE (03:40)
[2020-07-31] MEDS: ACETAMINOPHEN 325 MG TAB PO PRN (04:06)
[2020-07-31] MEDS: NYSTATIN SUSPENSION 5 ML UDC PO SCH ×3 (06:51→22:00)
[2020-07-31] MEDS: DEXAMETHASONE SOD PHOS 10 MG/1 ML VIAL IV SCH (08:47)
[2020-07-31] MEDS: FUROSEMIDE INJ 10 MG/ML 4 ML VIAL IV SCH ×2 (08:47→18:19)
[2020-07-31] MEDS: BALSAM PERU/CASTOR OIL 60 GM OINT...G. TP SCH (08:54)
[2020-07-31] MEDS: ACETAZOLAMIDE 250 MG TAB PO SCH ×3 (08:54→21:00)
[2020-07-31] MEDS: AMIODARONE HCL 200 MG TAB PO SCH ×2 (08:54→16:34)
[2020-07-31] MEDS: APIXABAN 5 MG TABLET PO SCH ×2 (08:54→16:35)
[2020-07-31] MEDS: CHOLECALCIFEROL 400 UNIT TAB PO SCH (08:54)
[2020-07-31] MEDS: ZINC SULFATE 220 MG CAP PO SCH (08:54)
[2020-07-31] MEDS: ASCORBIC ACID 500 MG TAB PO SCH ×2 (08:54→16:35)
[2020-07-31 10:27] LABS: ALANINE AMINOTRANSFERASE 33 IU/L (0-55); ALBUMIN 2.9 g/dL (3.5-5.0); ALBUMIN/GLOBULIN RATIO 0.7 (0.8-2.0); ALKALINE PHOSPHATASE 90 IU/L (40-150); ANION GAP 14.8 mmol/L (8-16); BLOOD UREA NITROGEN 40 mg/dL (7-26); BUN/CREATININE RATIO 53 (6-25); CALCIUM 9.1 mg/dL (8.4-10.2); CHLORIDE 87 mmol/L (98-107); CREATININE, SERUM 0.76 mg/dL (0.72-1.25); EST GLOMERULAR FILTRATION RATE > 60 ML/MIN (60-); GLUCOSE 114 mg/dL (74-118); POTASSIUM 3.8 mmol/L (3.5-5.1); SODIUM 141 mmol/L (136-145)
[2020-07-31 11:36] LABS: CARBON DIOXIDE 43 mmol/L (22-29)
[2020-07-31] MEDS: DEXMEDETOMIDINE 200MCG/NS 50ML 50 ML IV SCH (13:00)
[2020-07-31] MEDS: PIPERACILLIN/TAZOBAC 3.375 GM in SODIUM CHLORIDE 0.9% 50ML 50 ML IV SCH ×2 (15:50→16:36)
[2020-08-01] VITALS (24 sets, daily range): BP systolic 97–126; BP diastolic 63–83
[2020-08-01] MEDS: PIPERACILLIN/TAZOBAC 3.375 GM in SODIUM CHLORIDE 0.9% 50ML 50 ML IV SCH ×5 (01:12→23:59)
[2020-08-01] MEDS: NYSTATIN SUSPENSION 5 ML UDC PO SCH ×3 (06:00→21:51)
[2020-08-01] MEDS: ALBUTEROL SULFATE HFA 8GM INHALATION AEROSOL INH SCH ×3 (07:00→22:05)
[2020-08-01] MEDS: ZINC SULFATE 220 MG CAP PO SCH (09:00)
[2020-08-01] MEDS: CHOLECALCIFEROL 400 UNIT TAB PO SCH (09:00)
[2020-08-01] MEDS: APIXABAN 5 MG TABLET PO SCH ×2 (09:00→17:00)
[2020-08-01] MEDS: ACETAZOLAMIDE 250 MG TAB PO SCH ×2 (09:00→21:00)
[2020-08-01] MEDS: AMIODARONE HCL 200 MG TAB PO SCH ×2 (09:00→17:00)
[2020-08-01] MEDS: ASCORBIC ACID 500 MG TAB PO SCH ×2 (09:00→17:00)
[2020-08-01] MEDS: BALSAM PERU/CASTOR OIL 60 GM OINT...G. TP SCH (09:10)
[2020-08-01] MEDS: FUROSEMIDE INJ 10 MG/ML 4 ML VIAL IV SCH (09:10)
[2020-08-01] MEDS: DEXMEDETOMIDINE 200MCG/NS 50ML 50 ML IV SCH (13:00)
[2020-08-02] VITALS (27 sets, daily range): BP systolic 90–126; BP diastolic 54–82
[2020-08-02] MEDS: ALBUTEROL SULFATE HFA 8GM INHALATION AEROSOL INH SCH ×6 (03:00→23:33)
[2020-08-02] MEDS: NYSTATIN SUSPENSION 5 ML UDC PO SCH ×3 (05:55→22:06)
[2020-08-02] MEDS: PIPERACILLIN/TAZOBAC 3.375 GM in SODIUM CHLORIDE 0.9% 50ML 50 ML IV SCH ×4 (05:55→23:33)
[2020-08-02 06:19] LABS: BASOPHILS % 0.2 % (0.0-1.0); HEMATOCRIT 49.3 % (38.2-49.6); HEMOGLOBIN 15.2 g/dL (14.0-18.0); LYMPHOCYTES # (AUTO) 1.2 (1.0-3.2); LYMPHOCYTES % 5.4 % (18.0-39.1); MEAN CORPUSCULAR HEMOGLOBIN 28.1 pg (28-32); MEAN CORPUSCULAR HGB CONC 30.8 g/dL (31-35); MEAN CORPUSCULAR VOLUME 91.1 fL (81-99); MONOCYTES # (AUTO) 2.1 (0.2-0.8); MONOCYTES % 9.5 % (4.4-11.3); NEUTROPHILS # (AUTO) 18.2 (2.1-6.9); NEUTROPHILS % 84.3 % (38.7-80.0); PLATELET COUNT 294 x10e3/uL (140-360); RED BLOOD COUNT 5.41 x10e6/uL (4.3-5.7); RED CELL DISTRIBUTION WIDTH 15.4 % (11.7-14.4)
[2020-08-02 06:57] LABS: ALANINE AMINOTRANSFERASE 28 IU/L (0-55); ALBUMIN 2.8 g/dL (3.5-5.0); ALBUMIN/GLOBULIN RATIO 0.7 (0.8-2.0); ALKALINE PHOSPHATASE 87 IU/L (40-150); ANION GAP 16.5 mmol/L (8-16); BLOOD UREA NITROGEN 60 mg/dL (7-26); BUN/CREATININE RATIO 81 (6-25); CALCIUM 9.8 mg/dL (8.4-10.2); CHLORIDE 90 mmol/L (98-107); CREATININE, SERUM 0.74 mg/dL (0.72-1.25); EST GLOMERULAR FILTRATION RATE > 60 ML/MIN (60-); GLUCOSE 118 mg/dL (74-118); POTASSIUM 3.5 mmol/L (3.5-5.1); SODIUM 149 mmol/L (136-145)
[2020-08-02 07:01] LABS: CARBON DIOXIDE 46 mmol/L (22-29)
[2020-08-02] MEDS ORDERED: POTASSIUM CHLORIDE 20MEQ/100ML 200 ML IV ONE (07:45)
[2020-08-02 08:52] LABS: ANISOCYTOSIS SLIGHT; LYMPHOCYTES % (MANUAL) 5 % (19-48); MONOCYTES % (MANUAL) 10 % (3.4-9.0); MYELOCYTES % (MANUAL) 1 % (0-0); NEUTROPHILS % (MANUAL) 83 % (40-74); PLATELET ESTIMATE ADEQUATE; PLATELET MORPHOLOGY COMMENT NORMAL; RBC MORPHOLOGY COMMENT NORMAL
[2020-08-02] MEDS ORDERED: FUROSEMIDE INJ 10 MG/ML 4 ML VIAL IV SCH (09:00)
[2020-08-02] MEDS: BALSAM PERU/CASTOR OIL 60 GM OINT...G. TP SCH (09:09)
[2020-08-02] MEDS: ASCORBIC ACID 500 MG TAB PO SCH ×2 (09:09→18:08)
[2020-08-02] MEDS: ZINC SULFATE 220 MG CAP PO SCH (09:09)
[2020-08-02] MEDS: ACETAZOLAMIDE 250 MG TAB PO SCH ×2 (09:09→22:06)
[2020-08-02] MEDS: AMIODARONE HCL 200 MG TAB PO SCH ×2 (09:09→18:08)
[2020-08-02] MEDS: CHOLECALCIFEROL 400 UNIT TAB PO SCH (09:09)
[2020-08-02] MEDS: APIXABAN 5 MG TABLET PO SCH (09:09)
[2020-08-02] MEDS ORDERED: POTASSIUM CHLORIDE 20 MEQ in DEXTROSE 5% 1,000 ML IV ONE (11:00)
[2020-08-02] MEDS ORDERED: VANCOMYCIN 1GM/NS 250 ML 250 ML IV ONE (12:00)
[2020-08-02] MEDS: ENOXAPARIN 30 MG/0.3 ML SYR SC SCH (22:06)
[2020-08-03] VITALS (18 sets, daily range): BP systolic 95–124; BP diastolic 60–90
[2020-08-03] MEDS: ALBUTEROL SULFATE HFA 8GM INHALATION AEROSOL INH SCH ×5 (03:30→23:30)
[2020-08-03 06:28] LABS: BASOPHILS % 0.1 % (0.0-1.0); EOSINOPHILS % 0.1 % (0.0-6.0); HEMATOCRIT 44.1 % (38.2-49.6); HEMOGLOBIN 14.1 g/dL (14.0-18.0); LYMPHOCYTES # (AUTO) 1.1 (1.0-3.2); MEAN CORPUSCULAR HEMOGLOBIN 30.4 pg (28-32); MONOCYTES # (AUTO) 1.9 (0.2-0.8); MONOCYTES % 10.6 % (4.4-11.3); NEUTROPHILS # (AUTO) 14.9 (2.1-6.9); NEUTROPHILS % 82.5 % (38.7-80.0); PLATELET COUNT 186 x10e3/uL (140-360); RED BLOOD COUNT 4.64 x10e6/uL (4.3-5.7); RED CELL DISTRIBUTION WIDTH 18.3 % (11.7-14.4)
[2020-08-03 06:58] LABS: ALANINE AMINOTRANSFERASE 18 IU/L (0-55); ALBUMIN 2.5 g/dL (3.5-5.0); ALBUMIN/GLOBULIN RATIO 0.7 (0.8-2.0); ALKALINE PHOSPHATASE 74 IU/L (40-150); BLOOD UREA NITROGEN 51 mg/dL (7-26); BUN/CREATININE RATIO 77 (6-25); CALCIUM 10.2 mg/dL (8.4-10.2); CHLORIDE 91 mmol/L (98-107); CREATININE, SERUM 0.66 mg/dL (0.72-1.25); EST GLOMERULAR FILTRATION RATE > 60 ML/MIN (60-); GLUCOSE 104 mg/dL (74-118); SODIUM 147 mmol/L (136-145)
[2020-08-03 07:02] LABS: CARBON DIOXIDE 47 mmol/L (22-29)
[2020-08-03] MEDS: ZINC SULFATE 220 MG CAP PO SCH (09:04)
[2020-08-03] MEDS: PIPERACILLIN/TAZOBAC 3.375 GM in SODIUM CHLORIDE 0.9% 50ML 50 ML IV SCH ×4 (09:04→23:30)
[2020-08-03] MEDS: NYSTATIN SUSPENSION 5 ML UDC PO SCH ×3 (09:04→21:38)
[2020-08-03] MEDS: AMIODARONE HCL 200 MG TAB PO SCH ×2 (09:04→16:58)
[2020-08-03] MEDS: ASCORBIC ACID 500 MG TAB PO SCH ×2 (09:04→16:58)
[2020-08-03] MEDS: CHOLECALCIFEROL 400 UNIT TAB PO SCH (09:04)
[2020-08-03] MEDS: ENOXAPARIN 30 MG/0.3 ML SYR SC SCH ×2 (09:04→21:38)
[2020-08-03] MEDS: BALSAM PERU/CASTOR OIL 60 GM OINT...G. TP SCH (09:04)
[2020-08-03] MEDS ORDERED: KCL 20 MEQ PACKET/ ORAL SOLN NG ONE (12:30)
[2020-08-03] MEDS ORDERED: POTASSIUM CHLORIDE 20 MEQ TAB CR PO ONE (12:30)
[2020-08-03] MEDS ORDERED: PIPERACILLIN/TAZOBAC 3.375 GM VIAL ONE (20:55)
[2020-08-03] MEDS ORDERED: SODIUM CHLORIDE 0.9% 50ML 50 ML ONE (20:56)
[2020-08-03] MEDS ORDERED: SODIUM CHLORIDE 0.9% 250ML 250 ML ONE (21:37)
[2020-08-04] VITALS (7 sets, daily range): BP systolic 94–104; BP diastolic 57–65
[2020-08-04] MEDS ORDERED: PIPERACILLIN/TAZOBAC 3.375 GM VIAL ONE ×4 (03:04→20:06)
[2020-08-04] MEDS: ALBUTEROL SULFATE HFA 8GM INHALATION AEROSOL INH SCH ×5 (05:22→20:31)
[2020-08-04] MEDS: PIPERACILLIN/TAZOBAC 3.375 GM in SODIUM CHLORIDE 0.9% 50ML 50 ML IV SCH ×3 (05:22→17:45)
[2020-08-04] MEDS: NYSTATIN SUSPENSION 5 ML UDC PO SCH ×3 (05:22→20:31)
[2020-08-04 06:29] LABS: BASOPHILS % 0.2 % (0.0-1.0); EOSINOPHILS % 0.1 % (0.0-6.0); HEMOGLOBIN 14.9 g/dL (14.0-18.0); LYMPHOCYTES # (AUTO) 1.2 (1.0-3.2); LYMPHOCYTES % 7.9 % (18.0-39.1); MEAN CORPUSCULAR HEMOGLOBIN 30.8 pg (28-32); MEAN CORPUSCULAR HGB CONC 31.7 g/dL (31-35); MEAN CORPUSCULAR VOLUME 97.1 fL (81-99); MONOCYTES # (AUTO) 1.6 (0.2-0.8); MONOCYTES % 10.9 % (4.4-11.3); NEUTROPHILS # (AUTO) 11.9 (2.1-6.9); NEUTROPHILS % 80.3 % (38.7-80.0); PLATELET COUNT 153 x10e3/uL (140-360); RED BLOOD COUNT 4.84 x10e6/uL (4.3-5.7); RED CELL DISTRIBUTION WIDTH 19.2 % (11.7-14.4)
[2020-08-04 07:10] LABS: ANION GAP 16.9 mmol/L (8-16); BLOOD UREA NITROGEN 43 mg/dL (7-26); BUN/CREATININE RATIO 64 (6-25); CALCIUM 9.9 mg/dL (8.4-10.2); CARBON DIOXIDE 38 mmol/L (22-29); CHLORIDE 97 mmol/L (98-107); CREATININE, SERUM 0.67 mg/dL (0.72-1.25); EST GLOMERULAR FILTRATION RATE > 60 ML/MIN (60-); GLUCOSE 116 mg/dL (74-118); POTASSIUM 3.9 mmol/L (3.5-5.1); SODIUM 148 mmol/L (136-145)
[2020-08-04] MEDS: ASCORBIC ACID 500 MG TAB PO SCH ×2 (09:08→16:32)
[2020-08-04] MEDS: BALSAM PERU/CASTOR OIL 60 GM OINT...G. TP SCH (09:08)
[2020-08-04] MEDS: CHOLECALCIFEROL 400 UNIT TAB PO SCH (09:08)
[2020-08-04] MEDS: ENOXAPARIN 30 MG/0.3 ML SYR SC SCH ×2 (09:08→20:31)
[2020-08-04] MEDS: AMIODARONE HCL 200 MG TAB PO SCH ×2 (09:08→16:32)
[2020-08-04] MEDS: ZINC SULFATE 220 MG CAP PO SCH (09:08)
[2020-08-04] MEDS ORDERED: SODIUM CHLORIDE 0.9% 50ML 100 ML ONE ×2 (11:44→15:56)
[2020-08-05] VITALS (7 sets, daily range): BP systolic 92–106; BP diastolic 52–64
[2020-08-05] MEDS: PIPERACILLIN/TAZOBAC 3.375 GM in SODIUM CHLORIDE 0.9% 50ML 50 ML IV SCH ×3 (00:17→12:18)
[2020-08-05] MEDS: ALBUTEROL SULFATE HFA 8GM INHALATION AEROSOL INH SCH ×7 (00:17→23:00)
[2020-08-05] MEDS ORDERED: PIPERACILLIN/TAZOBAC 3.375 GM VIAL ONE ×2 (00:55→12:07)
[2020-08-05] MEDS: NYSTATIN SUSPENSION 5 ML UDC PO SCH ×2 (05:07→14:00)
[2020-08-05 05:29] LABS: BASOPHILS % 0.1 % (0.0-1.0); EOSINOPHILS % 0.1 % (0.0-6.0); HEMATOCRIT 43.7 % (38.2-49.6); HEMOGLOBIN 13.6 g/dL (14.0-18.0); LYMPHOCYTES % 6.4 % (18.0-39.1); MEAN CORPUSCULAR HEMOGLOBIN 29.6 pg (28-32); MEAN CORPUSCULAR HGB CONC 31.1 g/dL (31-35); MONOCYTES # (AUTO) 1.6 (0.2-0.8); MONOCYTES % 9.9 % (4.4-11.3); NEUTROPHILS # (AUTO) 13.4 (2.1-6.9); NEUTROPHILS % 82.7 % (38.7-80.0); PLATELET COUNT 148 x10e3/uL (140-360); RED CELL DISTRIBUTION WIDTH 17.5 % (11.7-14.4)
[2020-08-05 05:51] LABS: ANION GAP 12.2 mmol/L (8-16); BLOOD UREA NITROGEN 41 mg/dL (7-26); BUN/CREATININE RATIO 60 (6-25); CALCIUM 9.4 mg/dL (8.4-10.2); CHLORIDE 93 mmol/L (98-107); CREATININE, SERUM 0.68 mg/dL (0.72-1.25); EST GLOMERULAR FILTRATION RATE > 60 ML/MIN (60-); GLUCOSE 109 mg/dL (74-118); POTASSIUM 3.2 mmol/L (3.5-5.1); SODIUM 148 mmol/L (136-145)
[2020-08-05 05:53] LABS: CARBON DIOXIDE 46 mmol/L (22-29)
[2020-08-05] MEDS: AMIODARONE HCL 200 MG TAB PO SCH ×2 (09:00→16:36)
[2020-08-05] MEDS: ENOXAPARIN 30 MG/0.3 ML SYR SC SCH ×2 (09:59→21:23)
[2020-08-05] MEDS: ASCORBIC ACID 500 MG TAB PO SCH ×2 (09:59→16:36)
[2020-08-05] MEDS: CHOLECALCIFEROL 400 UNIT TAB PO SCH (09:59)
[2020-08-05] MEDS: ZINC SULFATE 220 MG CAP PO SCH (09:59)
[2020-08-05] MEDS ORDERED: KCL 20 MEQ PACKET/ ORAL SOLN NG ONE ×2 (10:20→12:00)
[2020-08-05] MEDS: BALSAM PERU/CASTOR OIL 60 GM OINT...G. TP SCH (10:49)
[2020-08-05] MEDS ORDERED: SODIUM CHLORIDE 0.9% 50ML 50 ML ONE (12:08)
[2020-08-06] VITALS (7 sets, daily range): BP systolic 94–128; BP diastolic 60–69
[2020-08-06] MEDS: ALBUTEROL SULFATE HFA 8GM INHALATION AEROSOL INH SCH ×6 (03:00→23:00)
[2020-08-06 05:16] LABS: INR 1.01; PROTHROMBIN TIME 13.9 seconds (11.9-14.5)
[2020-08-06] MEDS: AMIODARONE HCL 200 MG TAB PO SCH ×2 (09:00→16:19)
[2020-08-06] MEDS: ASCORBIC ACID 500 MG TAB PO SCH ×2 (10:57→16:19)
[2020-08-06] MEDS: ZINC SULFATE 220 MG CAP PO SCH (10:57)
[2020-08-06] MEDS: CHOLECALCIFEROL 400 UNIT TAB PO SCH (10:57)
[2020-08-06] MEDS: BALSAM PERU/CASTOR OIL 60 GM OINT...G. TP SCH (10:57)
[2020-08-06] MEDS: ENOXAPARIN 30 MG/0.3 ML SYR SC SCH (10:57)
[2020-08-07] VITALS (8 sets, daily range): BP systolic 100–116; BP diastolic 60–81
[2020-08-07] MEDS: ALBUTEROL SULFATE HFA 8GM INHALATION AEROSOL INH SCH ×6 (02:57→20:25)
[2020-08-07 05:07] LABS: BASOPHILS % 0.1 % (0.0-1.0); EOSINOPHILS # (AUTO) 0.1 (0.0-0.4); EOSINOPHILS % 0.5 % (0.0-6.0); HEMATOCRIT 40.6 % (38.2-49.6); HEMOGLOBIN 12.1 g/dL (14.0-18.0); LYMPHOCYTES % 7.1 % (18.0-39.1); MEAN CORPUSCULAR HEMOGLOBIN 27.4 pg (28-32); MEAN CORPUSCULAR HGB CONC 29.8 g/dL (31-35); MEAN CORPUSCULAR VOLUME 91.9 fL (81-99); MONOCYTES # (AUTO) 1.4 (0.2-0.8); MONOCYTES % 10.1 % (4.4-11.3); NEUTROPHILS % 81.3 % (38.7-80.0); PLATELET COUNT 162 x10e3/uL (140-360); RED BLOOD COUNT 4.42 x10e6/uL (4.3-5.7); RED CELL DISTRIBUTION WIDTH 15.8 % (11.7-14.4)
[2020-08-07 05:28] LABS: BLOOD UREA NITROGEN 28 mg/dL (7-26); BUN/CREATININE RATIO 50 (6-25); CALCIUM 9.6 mg/dL (8.4-10.2); CHLORIDE 94 mmol/L (98-107); CREATININE, SERUM 0.56 mg/dL (0.72-1.25); EST GLOMERULAR FILTRATION RATE > 60 ML/MIN (60-); GLUCOSE 116 mg/dL (74-118); SODIUM 146 mmol/L (136-145)
[2020-08-07 05:33] LABS: CARBON DIOXIDE 46 mmol/L (22-29)
[2020-08-07] MEDS: CHOLECALCIFEROL 400 UNIT TAB PO SCH (08:00)
[2020-08-07] MEDS: AMIODARONE HCL 200 MG TAB PO SCH ×2 (08:00→17:00)
[2020-08-07] MEDS: ASCORBIC ACID 500 MG TAB PO SCH ×2 (08:00→17:00)
[2020-08-07] MEDS: ZINC SULFATE 220 MG CAP PO SCH (08:00)
[2020-08-07] MEDS: BALSAM PERU/CASTOR OIL 60 GM OINT...G. TP SCH (08:00)
[2020-08-07] MEDS ORDERED: ENOXAPARIN 30 MG/0.3 ML SYR SC SCH (17:00)
== END 2020-08-07 22:30 | DRG 871 ==
LOC: ER 12:26 → ERHOLD 14:16 → IMCU 21:54 → COVIDICU 07-31 09:22 → IMCU 08-03 17:36
PROC: 02HV33Z Insertion of Infusion Device into Superior Vena Cava, Percutaneous Approach (ICD-10-PCS; principal; 2020-07-24)
PROC: XW033E5 Introduction of Remdesivir Anti-infective into Peripheral Vein, Percutaneous Approach, New Technology Group 5 (ICD-10-PCS; 2020-07-24)
DX: A41.9 Sepsis, unspecified organism (principal); U07.1 COVID-19; J12.82 Pneumonia due to coronavirus disease 2019; I50.33 Acute on chronic diastolic (congestive) heart failure; J96.01 Acute respiratory failure with hypoxia; J69.0 Pneumonitis due to inhalation of food and vomit; M62.82 Rhabdomyolysis; E87.1 Hypo-osmolality and hyponatremia; J44.0 Chronic obstructive pulmonary disease with (acute) lower respiratory infection; R65.20 Severe sepsis without septic shock; E88.09 Other disorders of plasma-protein metabolism, not elsewhere classified; E87.70 Fluid overload, unspecified; Z85.46 Personal history of malignant neoplasm of prostate; D64.9 Anemia, unspecified; I87.2 Venous insufficiency (chronic) (peripheral); M19.90 Unspecified osteoarthritis, unspecified site; I11.0 Hypertensive heart disease with heart failure; I35.0 Nonrheumatic aortic (valve) stenosis; N40.0 Benign prostatic hyperplasia without lower urinary tract symptoms; I48.0 Paroxysmal atrial fibrillation; I27.20 Pulmonary hypertension, unspecified; I08.3 Combined rheumatic disorders of mitral, aortic and tricuspid valves; I49.3 Ventricular premature depolarization; R13.10 Dysphagia, unspecified; E66.9 Obesity, unspecified; Z68.24 Body mass index [BMI] 24.0-24.9, adult
CPT/HCPCS: 36415; 36569; 36600; 71045; 74018; 74230; 80048; 80053; 81001; 82550; 82553; 82728; 82805; 82948; 83735; 83880; 84484; 85025; 85610; 85730; 86140; 87040; 87086; 93005; 93306; 94640; 94660; 94664; 97139; 99251; 99284; J0456; J0696; J1100; J1630; J1650; J1940; J2405; J2543; J2930; J3370; J3475; J3480; J7050; J7070; U0002

== ENCOUNTER 2020-09-17 09:08 | Emergency (ER) | payer OTHER, MEDICARE ==
[~2020-09-17] VITALS: Ht 182.9 cm; Wt 81.6 kg
[2020-09-17 09:38] LABS: BASOPHILS # (AUTO) 0.1 (0.0-0.1); BASOPHILS % 1.2 % (0.0-1.0); EOSINOPHILS # (AUTO) 0.2 (0.0-0.4); EOSINOPHILS % 1.9 % (0.0-6.0); HEMATOCRIT 35.7 % (38.2-49.6); HEMOGLOBIN 11.3 g/dL (14.0-18.0); LYMPHOCYTES # (AUTO) 1.4 (1.0-3.2); LYMPHOCYTES % 17.4 % (18.0-39.1); MEAN CORPUSCULAR HEMOGLOBIN 28.8 pg (28-32); MEAN CORPUSCULAR HGB CONC 31.7 g/dL (31-35); MEAN CORPUSCULAR VOLUME 90.8 fL (81-99); MONOCYTES # (AUTO) 0.8 (0.2-0.8); MONOCYTES % 9.8 % (4.4-11.3); NEUTROPHILS # (AUTO) 5.7 (2.1-6.9); NEUTROPHILS % 69.2 % (38.7-80.0); PLATELET COUNT 225 x10e3/uL (140-360); RED BLOOD COUNT 3.93 x10e6/uL (4.3-5.7); RED CELL DISTRIBUTION WIDTH 17.2 % (11.7-14.4)
[2020-09-17 10:11] LABS: ALANINE AMINOTRANSFERASE 11 IU/L (0-55); ALBUMIN 2.6 g/dL (3.5-5.0); ALBUMIN/GLOBULIN RATIO 0.7 (0.8-2.0); ALKALINE PHOSPHATASE 83 IU/L (40-150); ANION GAP 13.9 mmol/L (8-16); BLOOD UREA NITROGEN 9 mg/dL (7-26); BUN/CREATININE RATIO 13 (6-25); CALCIUM 8.3 mg/dL (8.4-10.2); CARBON DIOXIDE 34 mmol/L (22-29); CHLORIDE 95 mmol/L (98-107); CREATINE KINASE 38 IU/L (30-200); EST GLOMERULAR FILTRATION RATE > 60 ML/MIN (60-); GLUCOSE 141 mg/dL (74-118); SODIUM 140 mmol/L (136-145)
[2020-09-17 10:17] LABS: POTASSIUM 2.9 mmol/L (3.5-5.1)
[2020-09-17] MEDS ORDERED: POTASSIUM CHLORIDE 20 MEQ TAB CR PO ONE (11:00)
[2020-09-17 11:02] VITALS: BP 103/60
== END 2020-09-17 11:06 | disposition home or self-care (01) ==
LOC: ER 09:38
DX: S01.01XA Laceration without foreign body of scalp, initial encounter (principal); M79.644 Pain in right finger(s); W01.0XXA Fall on same level from slipping, tripping and stumbling without subsequent striking against object, initial encounter; Y92.008 Other place in unspecified non-institutional (private) residence as the place of occurrence of the external cause; I50.9 Heart failure, unspecified; K21.9 Gastro-esophageal reflux disease without esophagitis; R94.31 Abnormal electrocardiogram [ECG] [EKG]
CPT/HCPCS: 36415; 70450; 72125; 80053; 82550; 82553; 84484; 85025; 93005; 99284

== ENCOUNTER → 2020-09-27 | Day surgery (SDC) | payer MEDICARE ==
[~2020-09-27] MED LIST changes: +COMBIVENT RESPIM4 GM NEB; +DIGESTIVE GOLD PO; +EPHEDRINE SULFATE INJ 50 MG/ML VIAL ONE; +LIDOCAINE HCL 2% LOCAL INJ 5 ML SDV VIAL INJ ONE; +MIDODRINE HCL2.5 MG PO; +MULTI-VITAMIN1 EACH PO; +NEOSTIGMINE 1 MG/ML 10ML VIAL ONE; +POTASSIUM CHLO10 ME1 PO; +PROPOFOL IV EMULSION 10 MG/ML 20 ML VIAL ONE; +SERTRALINE HCL50 MG PO; +VITAMIN B3 PO
[2020-09-27 07:09] LABS: BASOPHILS # (AUTO) 0.1 (0.0-0.1); BASOPHILS % 1.2 % (0.0-1.0); EOSINOPHILS # (AUTO) 0.2 (0.0-0.4); EOSINOPHILS % 3.1 % (0.0-6.0); HEMATOCRIT 34.1 % (38.2-49.6); HEMOGLOBIN 10.8 g/dL (14.0-18.0); LYMPHOCYTES # (AUTO) 2.2 (1.0-3.2); LYMPHOCYTES % 31.7 % (18.0-39.1); MEAN CORPUSCULAR HGB CONC 31.7 g/dL (31-35); MEAN CORPUSCULAR VOLUME 91.4 fL (81-99); MONOCYTES # (AUTO) 0.8 (0.2-0.8); MONOCYTES % 11.3 % (4.4-11.3); NEUTROPHILS # (AUTO) 3.6 (2.1-6.9); NEUTROPHILS % 52.4 % (38.7-80.0); PLATELET COUNT 265 x10e3/uL (140-360); RED BLOOD COUNT 3.73 x10e6/uL (4.3-5.7); RED CELL DISTRIBUTION WIDTH 17.2 % (11.7-14.4)
[2020-09-27 08:30] VITALS: BP 101/70
== END | disposition home or self-care (01) ==
LOC: OR 06:11
PROVIDERS: ATTEND Internal Medicine Gastroenterology
DX: Z43.1 Encounter for attention to gastrostomy (principal); K29.70 Gastritis, unspecified, without bleeding; K20.90 Esophagitis, unspecified without bleeding; K21.9 Gastro-esophageal reflux disease without esophagitis; I48.91 Unspecified atrial fibrillation; I25.10 Atherosclerotic heart disease of native coronary artery without angina pectoris; J43.9 Emphysema, unspecified; M19.90 Unspecified osteoarthritis, unspecified site; F41.9 Anxiety disorder, unspecified; Z88.6 Allergy status to analgesic agent; Z79.02 Long term (current) use of antithrombotics/antiplatelets; Z90.49 Acquired absence of other specified parts of digestive tract; Z85.46 Personal history of malignant neoplasm of prostate; Z86.16 Personal history of COVID-19; Z87.01 Personal history of pneumonia (recurrent); Z87.891 Personal history of nicotine dependence
CPT/HCPCS: 36415; 43239; 43247; 85025; 88305; 88312; J2001; J2704; J2710; 43246

== ENCOUNTER → 2020-11-05 | Day surgery (SDC) | payer MEDICARE ==
[2020-10-31 16:02] LABS: BASOPHILS # (AUTO) 0.1 (0.0-0.1); BASOPHILS % 1.1 % (0.0-1.0); EOSINOPHILS # (AUTO) 0.2 (0.0-0.4); EOSINOPHILS % 2.9 % (0.0-6.0); HEMATOCRIT 36.4 % (38.2-49.6); HEMOGLOBIN 11.2 g/dL (14.0-18.0); LYMPHOCYTES # (AUTO) 2.5 (1.0-3.2); LYMPHOCYTES % 34.3 % (18.0-39.1); MEAN CORPUSCULAR HEMOGLOBIN 29.1 pg (28-32); MEAN CORPUSCULAR HGB CONC 30.8 g/dL (31-35); MEAN CORPUSCULAR VOLUME 94.5 fL (81-99); MONOCYTES # (AUTO) 0.8 (0.2-0.8); MONOCYTES % 10.5 % (4.4-11.3); NEUTROPHILS # (AUTO) 3.6 (2.1-6.9); NEUTROPHILS % 50.9 % (38.7-80.0); PLATELET COUNT 230 x10e3/uL (140-360); RED BLOOD COUNT 3.85 x10e6/uL (4.3-5.7)
[~2020-11-05] MED LIST changes: -EPHEDRINE SULFATE INJ 50 MG/ML VIAL ONE; -LIDOCAINE HCL 2% LOCAL INJ 5 ML SDV VIAL INJ ONE; -NEOSTIGMINE 1 MG/ML 10ML VIAL ONE; +OR PHACO EYE KIT ONE; +PREOP PHACO EYE KIT ONE; -PROPOFOL IV EMULSION 10 MG/ML 20 ML VIAL ONE
[2020-11-05 15:10] VITALS: BP 119/73
== END | disposition home or self-care (01) ==
LOC: OR 13:29
PROVIDERS: ATTEND Ophthalmology
DX: H25.12 Age-related nuclear cataract, left eye (principal); H57.09 Other anomalies of pupillary function; J44.9 Chronic obstructive pulmonary disease, unspecified; I25.10 Atherosclerotic heart disease of native coronary artery without angina pectoris; I48.91 Unspecified atrial fibrillation; I10 Essential (primary) hypertension; F41.9 Anxiety disorder, unspecified; H91.90 Unspecified hearing loss, unspecified ear; Z88.6 Allergy status to analgesic agent; Z01.812 Encounter for preprocedural laboratory examination; Z20.822 Contact with and (suspected) exposure to COVID-19; Z79.02 Long term (current) use of antithrombotics/antiplatelets; Z86.16 Personal history of COVID-19; Z85.46 Personal history of malignant neoplasm of prostate; Z87.891 Personal history of nicotine dependence
CPT/HCPCS: 36415; 66982; 85025; U0002; V2632

== ENCOUNTER → 2020-12-03 | Day surgery (SDC) | payer MEDICARE ==
[2020-12-03 12:40] VITALS: BP 112/74
== END | disposition home or self-care (01) ==
LOC: OR 10:45
PROVIDERS: ATTEND Ophthalmology
DX: H25.11 Age-related nuclear cataract, right eye (principal); I25.10 Atherosclerotic heart disease of native coronary artery without angina pectoris; I48.91 Unspecified atrial fibrillation; J44.9 Chronic obstructive pulmonary disease, unspecified; K21.9 Gastro-esophageal reflux disease without esophagitis; Z88.6 Allergy status to analgesic agent; Z79.02 Long term (current) use of antithrombotics/antiplatelets; Z01.812 Encounter for preprocedural laboratory examination; Z20.822 Contact with and (suspected) exposure to COVID-19; Z85.46 Personal history of malignant neoplasm of prostate; Z87.891 Personal history of nicotine dependence
CPT/HCPCS: 66984; U0002; V2632

== ENCOUNTER 2021-09-30 06:54 | Emergency (ER) | payer MEDICARE ==
[~2021-09-30] VITALS: Ht 182.9 cm; Wt 81.6 kg
[~2021-09-30 06:54] MED LIST changes: -OR PHACO EYE KIT ONE; -PREOP PHACO EYE KIT ONE
[2021-09-30] MEDS ORDERED: TETANUS/DIPHTHERIA TOX ADULT 0.5 ML SYR IM ONE (07:15)
[2021-09-30] MEDS ORDERED: LIDOCAINE HCL 1% LOCAL INJ 20 ML VIAL INJ ONE (07:15)
== END 2021-09-30 08:15 | disposition home or self-care (01) ==
LOC: ER 07:00
DX: S81.811A Laceration without foreign body, right lower leg, initial encounter (principal); W45.8XXA Other foreign body or object entering through skin, initial encounter; Y93.84 Activity, sleeping; Y92.098 Other place in other non-institutional residence as the place of occurrence of the external cause; I50.9 Heart failure, unspecified; K21.9 Gastro-esophageal reflux disease without esophagitis
CPT/HCPCS: 12002; 90471; 90714; 99282; J2001

== ENCOUNTER 2022-09-03 14:02 | Inpatient (IN) | payer MEDICARE, OTHER ==
[~2022-09-03] VITALS: Ht 182.9 cm; Wt 82.1 kg
[2022-09-03] MEDS ORDERED: ONDANSETRON HCL INJ 2MG/ML 2ML 2 MG/ML VIAL IV PRN (16:45)
[2022-09-03 17:30] LABS: BASOPHILS # (AUTO) 0.1 (0.0-0.1); BASOPHILS % 0.8 % (0.0-1.0); EOSINOPHILS % 0.3 % (0.0-6.0); HEMATOCRIT 31.2 % (38.2-49.6); HEMOGLOBIN 9.9 g/dL (14.0-18.0); LYMPHOCYTES # (AUTO) 1.2 (1.0-3.2); LYMPHOCYTES % 11.7 % (18.0-39.1); MEAN CORPUSCULAR HGB CONC 31.7 g/dL (31-35); MEAN CORPUSCULAR VOLUME 94.5 fL (81-99); MONOCYTES # (AUTO) 1.3 (0.2-0.8); MONOCYTES % 13.1 % (4.4-11.3); NEUTROPHILS # (AUTO) 7.3 (2.1-6.9); NEUTROPHILS % 73.7 % (38.7-80.0); PLATELET COUNT 204 x10e3/uL (140-360); RED CELL DISTRIBUTION WIDTH 14.9 % (11.7-14.4)
[2022-09-03 17:44] LABS: ALBUMIN 3.3 g/dL (3.5-5.0); ALBUMIN/GLOBULIN RATIO 0.9 (0.8-2.0); ANION GAP 17.3 mmol/L (8-16); CALCIUM 8.8 mg/dL (8.4-10.2); CREATININE, SERUM 0.96 mg/dL (0.72-1.25)
[2022-09-03 17:48] LABS: POTASSIUM 5.3 mmol/L (3.5-5.1)
[2022-09-03] MEDS: SODIUM CHLORIDE 0.9% 1000ML 1,000 ML IV SCH ×2 (18:15→20:15)
[2022-09-03 20:00] VITALS: BP 100/53
[2022-09-03 20:20] VITALS: BP 100/53
[2022-09-03] MEDS ORDERED: SOD POLYSTYRENE SULFONATE SUSP 15 GM/60 ML BTL PO ONE (20:30)
[2022-09-03] MEDS ORDERED: FLOMAX0.4 MG PO (21:10)
[2022-09-03] MEDS ORDERED: Vitamin D3 PO (21:10)
[2022-09-03] MEDS ORDERED: MYRBETRIQ50 MG PO (21:10)
[2022-09-03] MEDS ORDERED: LISINOPRIL5 MG PO (21:10)
[2022-09-03] MEDS ORDERED: ACETAMINOPHEN 325 MG TAB PO PRN (21:30)
[2022-09-04] VITALS (8 sets, daily range): BP systolic 91–106; BP diastolic 55–72
[2022-09-04 02:10] LABS: CLARITY,URINE CLEAR (CLEAR); COLOR,URINE YELLOW (YELLOW); KETONES,URINE NEGATIVE (NEGATIVE); LEUKOCYTE ESTERASE ,URINE NEGATIVE (NEGATIVE); NITRITE,URINE NEGATIVE (NEGATIVE); PROTEIN,URINE DIPSTICK NEGATIVE (NEGATIVE); URINE UROBILINOGEN 0.2 mg/dL (0.2 - 1)
[2022-09-04] MEDS ORDERED: ALBUTEROL SULF 0.083% NEB SOLN 3 ML NEB ONE ×4 (02:12→20:02)
[2022-09-04] MEDS ORDERED: IPRATROPIUM BROMIDE 0.02% 2.5 ML NEB ONE ×3 (02:13→20:03)
[2022-09-04 02:53] LABS: BACTERIA,URINE FEW /HPF; EPITHELIAL CELLS,URINE FEW /LPF; RBC,URINE 0-5 /HPF (0-5); TRANSITIONAL EPI CELLS,URINE FEW
[2022-09-04 02:56] LABS: URIC ACID CRYSTALS,URINE FEW (FEW)
[2022-09-04 06:05] LABS: BASOPHILS # (AUTO) 0.1 (0.0-0.1); EOSINOPHILS % 0.3 % (0.0-6.0); HEMATOCRIT 26.2 % (38.2-49.6); HEMOGLOBIN 8.4 g/dL (14.0-18.0); LYMPHOCYTES # (AUTO) 1.2 (1.0-3.2); LYMPHOCYTES % 16.1 % (18.0-39.1); MEAN CORPUSCULAR HEMOGLOBIN 30.2 pg (28-32); MEAN CORPUSCULAR HGB CONC 32.1 g/dL (31-35); MEAN CORPUSCULAR VOLUME 94.2 fL (81-99); MONOCYTES # (AUTO) 1.3 (0.2-0.8); MONOCYTES % 17.4 % (4.4-11.3); NEUTROPHILS # (AUTO) 4.8 (2.1-6.9); NEUTROPHILS % 64.8 % (38.7-80.0); PLATELET COUNT 156 x10e3/uL (140-360); RED BLOOD COUNT 2.78 x10e6/uL (4.3-5.7); RED CELL DISTRIBUTION WIDTH 14.7 % (11.7-14.4)
[2022-09-04 06:33] LABS: ALBUMIN 2.7 g/dL (3.5-5.0); ALBUMIN/GLOBULIN RATIO 0.9 (0.8-2.0); ANION GAP 13.8 mmol/L (8-16); CALCIUM 8.1 mg/dL (8.4-10.2); CREATININE, SERUM 0.94 mg/dL (0.72-1.25); POTASSIUM 4.8 mmol/L (3.5-5.1)
[2022-09-04 06:34] LABS: MAGNESIUM 2.1 MG/DL (1.3-2.1)
[2022-09-04 06:51] LABS: FERRITIN 162.86 ng/mL (21.81-274.66); THYROID STIMULATING HORMONE 0.372 uIU/mL (0.350-4.940)
[2022-09-04] MEDS: SODIUM CHLORIDE 0.9% 1000ML 1,000 ML IV SCH ×2 (08:21→16:53)
[2022-09-04] MEDS: SENNOSIDES 8.6 MG TAB PO SCH (08:21)
[2022-09-04] MEDS: APIXAB 2.5 MG TABLET PO SCH ×2 (08:21→17:26)
[2022-09-04] MEDS: DOCUSATE SODIUM 100 MG CAP PO SCH (08:21)
[2022-09-04] MEDS: DEXAMETHASONE 4 MG TAB PO SCH (17:26)
[2022-09-04] MEDS ORDERED: REMDESIVIR 100MG 200 MG in SODIUM CHLORIDE 0.9% 100 ML IV ONE (20:00)
[2022-09-04] MEDS: ALBUTEROL/IPRATROPIUM 3 ML NEB NEB PRN (20:08)
[2022-09-04] MEDS: BUDESONIDE/FORMOTEROL 160/4.5MCG INHALER INH SCH (20:08)
[2022-09-04] MEDS: TRAMADOL HCL 50 MG TAB PO PRN (21:10)
[2022-09-04] MEDS: ZOLPIDEM TARTRATE 5 MG TAB PO SCH (21:10)
[2022-09-05] VITALS (7 sets, daily range): BP systolic 96–135; BP diastolic 62–73
[2022-09-05] MEDS: BUDESONIDE/FORMOTEROL 160/4.5MCG INHALER INH SCH ×2 (07:30→19:32)
[2022-09-05 07:37] LABS: BASOPHILS % 0.7 % (0.0-1.0); HEMATOCRIT 27.2 % (38.2-49.6); HEMOGLOBIN 8.5 g/dL (14.0-18.0); LYMPHOCYTES # (AUTO) 0.9 (1.0-3.2); LYMPHOCYTES % 14.1 % (18.0-39.1); MEAN CORPUSCULAR HGB CONC 31.3 g/dL (31-35); MEAN CORPUSCULAR VOLUME 96.1 fL (81-99); MONOCYTES # (AUTO) 0.7 (0.2-0.8); MONOCYTES % 10.6 % (4.4-11.3); NEUTROPHILS # (AUTO) 4.6 (2.1-6.9); NEUTROPHILS % 73.9 % (38.7-80.0); PLATELET COUNT 141 x10e3/uL (140-360); RED BLOOD COUNT 2.83 x10e6/uL (4.3-5.7); RED CELL DISTRIBUTION WIDTH 14.9 % (11.7-14.4)
[2022-09-05 08:14] LABS: ANION GAP 12.9 mmol/L (8-16); CALCIUM 8.4 mg/dL (8.4-10.2); CREATININE, SERUM 0.74 mg/dL (0.72-1.25); MAGNESIUM 2.1 MG/DL (1.3-2.1); POTASSIUM 4.9 mmol/L (3.5-5.1)
[2022-09-05] MEDS: SENNOSIDES 8.6 MG TAB PO SCH (08:23)
[2022-09-05] MEDS: DOCUSATE SODIUM 100 MG CAP PO SCH (08:23)
[2022-09-05] MEDS: APIXAB 2.5 MG TABLET PO SCH ×2 (08:23→16:59)
[2022-09-05] MEDS: FERROUS SULFATE 325 MG TAB PO SCH (08:24)
[2022-09-05 09:11] LABS: FREE T4 (FREE THYROXINE) 0.95 ng/dL (0.8-1.8)
[2022-09-05] MEDS ORDERED: ALBUTEROL SULF 0.083% NEB SOLN 3 ML NEB ONE ×2 (12:20→18:26)
[2022-09-05] MEDS ORDERED: IPRATROPIUM BROMIDE 0.02% 2.5 ML NEB ONE ×2 (12:20→18:25)
[2022-09-05] MEDS: REMDESIVIR 100MG 100 MG in SODIUM CHLORIDE 0.9% 100 ML IV SCH (13:34)
[2022-09-05] MEDS ORDERED: FUROSEMIDE INJ 10 MG/ML 2 ML VIAL IV ONE (14:30)
[2022-09-05] MEDS: DEXAMETHASONE 4 MG TAB PO SCH (17:00)
[2022-09-05] MEDS: TRAMADOL HCL 50 MG TAB PO PRN (20:35)
[2022-09-05] MEDS: ZOLPIDEM TARTRATE 5 MG TAB PO SCH (20:36)
[2022-09-06] VITALS (8 sets, daily range): BP systolic 115–139; BP diastolic 76–89
[2022-09-06] MEDS: BUDESONIDE/FORMOTEROL 160/4.5MCG INHALER INH SCH ×2 (06:13→19:00)
[2022-09-06 07:25] LABS: BASOPHILS % 0.5 % (0.0-1.0); HEMATOCRIT 27.5 % (38.2-49.6); HEMOGLOBIN 8.8 g/dL (14.0-18.0); LYMPHOCYTES # (AUTO) 0.7 (1.0-3.2); LYMPHOCYTES % 11.9 % (18.0-39.1); MEAN CORPUSCULAR HEMOGLOBIN 29.8 pg (28-32); MEAN CORPUSCULAR VOLUME 93.2 fL (81-99); MONOCYTES # (AUTO) 0.7 (0.2-0.8); MONOCYTES % 11.9 % (4.4-11.3); NEUTROPHILS # (AUTO) 4.6 (2.1-6.9); NEUTROPHILS % 75.4 % (38.7-80.0); PLATELET COUNT 180 x10e3/uL (140-360); RED BLOOD COUNT 2.95 x10e6/uL (4.3-5.7); RED CELL DISTRIBUTION WIDTH 14.6 % (11.7-14.4)
[2022-09-06 08:05] LABS: ANION GAP 11.5 mmol/L (8-16); CALCIUM 8.8 mg/dL (8.4-10.2); CREATININE, SERUM 0.69 mg/dL (0.72-1.25); POTASSIUM 4.5 mmol/L (3.5-5.1)
[2022-09-06] MEDS: SENNOSIDES 8.6 MG TAB PO SCH (08:18)
[2022-09-06] MEDS: FERROUS SULFATE 325 MG TAB PO SCH (08:18)
[2022-09-06] MEDS: APIXAB 2.5 MG TABLET PO SCH ×2 (08:18→17:12)
[2022-09-06] MEDS: DOCUSATE SODIUM 100 MG CAP PO SCH (08:19)
[2022-09-06] MEDS ORDERED: ALBUTEROL SULF 0.083% NEB SOLN 3 ML NEB ONE ×4 (08:20→19:51)
[2022-09-06] MEDS ORDERED: FUROSEMIDE INJ 10 MG/ML 2 ML VIAL IV ONE (10:30)
[2022-09-06] MEDS: TRIAMCINOLONE ACET 0.1% CREAM 15 GM TUBE TOP SCH ×2 (11:21→22:06)
[2022-09-06] MEDS: GUAIFENESIN 600 MG TAB PO PRN (11:22)
[2022-09-06] MEDS ORDERED: NYSTATIN 100,000 UNITS/GM CRM 30GM TUBE TOP SCH (12:00)
[2022-09-06] MEDS ORDERED: IPRATROPIUM BROMIDE 0.02% 2.5 ML NEB ONE ×2 (12:44→19:52)
[2022-09-06] MEDS: REMDESIVIR 100MG 100 MG in SODIUM CHLORIDE 0.9% 100 ML IV SCH (13:40)
[2022-09-06] MEDS: DEXAMETHASONE 4 MG TAB PO SCH (17:13)
[2022-09-06] MEDS: ALBUTEROL/IPRATROPIUM 3 ML NEB NEB PRN (20:10)
[2022-09-06] MEDS: TRAMADOL HCL 50 MG TAB PO PRN (22:04)
[2022-09-06] MEDS: ZOLPIDEM TARTRATE 5 MG TAB PO SCH (22:04)
[2022-09-06] MEDS: NYSTATIN 100,000 UNITS/GM CRM 30GM TUBE TOP SCH (22:06)
[2022-09-07] VITALS (9 sets, daily range): BP systolic 92–128; BP diastolic 66–81
[2022-09-07 06:11] LABS: BASOPHILS % 0.2 % (0.0-1.0); HEMATOCRIT 26.9 % (38.2-49.6); HEMOGLOBIN 8.7 g/dL (14.0-18.0); LYMPHOCYTES # (AUTO) 0.8 (1.0-3.2); LYMPHOCYTES % 14.3 % (18.0-39.1); MEAN CORPUSCULAR HEMOGLOBIN 30.6 pg (28-32); MEAN CORPUSCULAR HGB CONC 32.3 g/dL (31-35); MEAN CORPUSCULAR VOLUME 94.7 fL (81-99); MONOCYTES # (AUTO) 0.5 (0.2-0.8); MONOCYTES % 9.7 % (4.4-11.3); NEUTROPHILS % 75.4 % (38.7-80.0); PLATELET COUNT 183 x10e3/uL (140-360); RED BLOOD COUNT 2.84 x10e6/uL (4.3-5.7); RED CELL DISTRIBUTION WIDTH 14.7 % (11.7-14.4)
[2022-09-07 06:40] LABS: ANION GAP 12.4 mmol/L (8-16); CALCIUM 8.8 mg/dL (8.4-10.2); CREATININE, SERUM 0.68 mg/dL (0.72-1.25); POTASSIUM 4.4 mmol/L (3.5-5.1)
[2022-09-07] MEDS: BUDESONIDE/FORMOTEROL 160/4.5MCG INHALER INH SCH ×2 (06:59→19:00)
[2022-09-07] MEDS: APIXAB 2.5 MG TABLET PO SCH ×2 (08:48→16:57)
[2022-09-07] MEDS: SENNOSIDES 8.6 MG TAB PO SCH (08:48)
[2022-09-07] MEDS: FERROUS SULFATE 325 MG TAB PO SCH (08:48)
[2022-09-07] MEDS: GUAIFENESIN 600 MG TAB PO PRN ×2 (08:54→18:30)
[2022-09-07] MEDS: DOCUSATE SODIUM 100 MG CAP PO SCH (12:11)
[2022-09-07] MEDS: NYSTATIN 100,000 UNITS/GM CRM 30GM TUBE TOP SCH ×2 (12:11→22:17)
[2022-09-07] MEDS: TRIAMCINOLONE ACET 0.1% CREAM 15 GM TUBE TOP SCH ×2 (12:11→22:16)
[2022-09-07] MEDS: REMDESIVIR 100MG 100 MG in SODIUM CHLORIDE 0.9% 100 ML IV SCH (14:00)
[2022-09-07] MEDS: DEXAMETHASONE 4 MG TAB PO SCH (16:57)
[2022-09-07] MEDS ORDERED: ALBUTEROL SULF 0.083% NEB SOLN 3 ML NEB ONE (18:42)
[2022-09-07] MEDS ORDERED: IPRATROPIUM BROMIDE 0.02% 2.5 ML NEB ONE (18:42)
[2022-09-07] MEDS: ZOLPIDEM TARTRATE 5 MG TAB PO SCH (22:05)
[2022-09-07] MEDS: TRAMADOL HCL 50 MG TAB PO PRN (22:15)
[2022-09-08 01:26] VITALS: BP 118/70
[2022-09-08 05:30] VITALS: BP 131/72
[2022-09-08] MEDS: IPRATROPIUM BROMIDE 0.02% 2.5 ML NEB NEB PRN ×2 (06:29→15:05)
[2022-09-08] MEDS: ALBUTEROL SULF 0.083% NEB SOLN 3 ML NEB NEB PRN ×2 (06:29→15:05)
[2022-09-08 06:35] LABS: BASOPHILS % 0.2 % (0.0-1.0); HEMATOCRIT 27.1 % (38.2-49.6); HEMOGLOBIN 8.7 g/dL (14.0-18.0); LYMPHOCYTES # (AUTO) 0.9 (1.0-3.2); LYMPHOCYTES % 17.1 % (18.0-39.1); MEAN CORPUSCULAR HEMOGLOBIN 29.5 pg (28-32); MEAN CORPUSCULAR HGB CONC 32.1 g/dL (31-35); MEAN CORPUSCULAR VOLUME 91.9 fL (81-99); MONOCYTES # (AUTO) 0.6 (0.2-0.8); MONOCYTES % 11.3 % (4.4-11.3); NEUTROPHILS # (AUTO) 3.8 (2.1-6.9); NEUTROPHILS % 70.8 % (38.7-80.0); PLATELET COUNT 193 x10e3/uL (140-360); RED BLOOD COUNT 2.95 x10e6/uL (4.3-5.7); RED CELL DISTRIBUTION WIDTH 14.7 % (11.7-14.4)
[2022-09-08 06:57] LABS: ANION GAP 13.6 mmol/L (8-16); CALCIUM 8.5 mg/dL (8.4-10.2); CREATININE, SERUM 0.71 mg/dL (0.72-1.25); POTASSIUM 4.6 mmol/L (3.5-5.1)
[2022-09-08] MEDS: BUDESONIDE/FORMOTEROL 160/4.5MCG INHALER INH SCH (07:00)
[2022-09-08 07:55] VITALS: BP 114/79
[2022-09-08 08:00] VITALS: BP 114/79
[2022-09-08] MEDS: TRIAMCINOLONE ACET 0.1% CREAM 15 GM TUBE TOP SCH (09:42)
[2022-09-08] MEDS: NYSTATIN 100,000 UNITS/GM CRM 30GM TUBE TOP SCH (09:42)
[2022-09-08] MEDS: DOCUSATE SODIUM 100 MG CAP PO SCH (09:42)
[2022-09-08] MEDS: APIXAB 2.5 MG TABLET PO SCH (09:42)
[2022-09-08] MEDS: SENNOSIDES 8.6 MG TAB PO SCH (09:42)
[2022-09-08] MEDS: FERROUS SULFATE 325 MG TAB PO SCH (09:42)
[2022-09-08] MEDS ORDERED: FUROSEMIDE INJ 10 MG/ML 2 ML VIAL IV ONE (09:45)
[2022-09-08] MEDS ORDERED: ONDANSETRON HCL 4 MG ORAL DISINTEGRATING TAB PO PRN (10:00)
[2022-09-08 12:01] VITALS: BP 115/78
[2022-09-08] MEDS ORDERED: DEXAMETHASONE4 MG PO (12:49)
[2022-09-08] MEDS ORDERED: LASIX20 MG PO (12:49)
[2022-09-08] MEDS ORDERED: CEPHALEXIN500 M1 PO (12:49)
[2022-09-08] MEDS: REMDESIVIR 100MG 100 MG in SODIUM CHLORIDE 0.9% 100 ML IV SCH (13:32)
== END 2022-09-08 15:06 | disposition home or self-care (01) | DRG 299 ==
LOC: ER 14:10 → ERHOLD 16:43 → MED/SURG3 18:46
PROVIDERS: ADMIT Internal Medicine; ATTEND Internal Medicine
PROC: 8E0ZXY6 Isolation (ICD-10-PCS; principal; 2022-09-03)
PROC: 3E0333Z Introduction of Anti-inflammatory into Peripheral Vein, Percutaneous Approach (ICD-10-PCS; 2022-09-04)
PROC: XW033E5 Introduction of Remdesivir Anti-infective into Peripheral Vein, Percutaneous Approach, New Technology Group 5 (ICD-10-PCS; 2022-09-05)
DX: I83.009 Varicose veins of unspecified lower extremity with ulcer of unspecified site (principal); I50.33 Acute on chronic diastolic (congestive) heart failure; U07.1 COVID-19; J96.01 Acute respiratory failure with hypoxia; J12.82 Pneumonia due to coronavirus disease 2019; L97.929 Non-pressure chronic ulcer of unspecified part of left lower leg with unspecified severity; L03.116 Cellulitis of left lower limb; E87.1 Hypo-osmolality and hyponatremia; L03.115 Cellulitis of right lower limb; L97.919 Non-pressure chronic ulcer of unspecified part of right lower leg with unspecified severity; K21.9 Gastro-esophageal reflux disease without esophagitis; B96.5 Pseudomonas (aeruginosa) (mallei) (pseudomallei) as the cause of diseases classified elsewhere; E11.9 Type 2 diabetes mellitus without complications; I11.0 Hypertensive heart disease with heart failure; N40.0 Benign prostatic hyperplasia without lower urinary tract symptoms; F32.A Depression, unspecified; J44.9 Chronic obstructive pulmonary disease, unspecified; E78.5 Hyperlipidemia, unspecified; I25.10 Atherosclerotic heart disease of native coronary artery without angina pectoris; B95.2 Enterococcus as the cause of diseases classified elsewhere; E87.5 Hyperkalemia; I48.0 Paroxysmal atrial fibrillation; D50.9 Iron deficiency anemia, unspecified; Z85.46 Personal history of malignant neoplasm of prostate; Z92.3 Personal history of irradiation; Z79.01 Long term (current) use of anticoagulants
CPT/HCPCS: 36415; 71045; 80048; 80053; 81001; 82607; 82728; 82746; 83540; 83735; 83880; 84436; 84439; 84443; 84466; 84479; 85025; 86140; 87040; 94640; 94664; 94799; 96361; 97139; 99252; 99285; J0248; J0696; J1940; J2405; J2543; J7030; J7050

== ENCOUNTER 2022-11-12 07:12 | Inpatient (IN) | payer MEDICARE, OTHER ==
[2022-11-12] VITALS (8 sets, daily range): BP systolic 96–112; BP diastolic 59–97; PULSE 73–80; RESP 18–22; TEMP 97.7–98.4; O2SAT 94–100
[~2022-11-12] VITALS: Ht 182.9 cm; Wt 81.6 kg
[~2022-11-12 07:12] MED LIST changes: +CEPHALEXIN500 M1 PO; +DEXAMETHASONE4 MG PO; +FLOMAX0.4 MG PO; +LASIX20 MG PO; +LISINOPRIL5 MG PO; +MYRBETRIQ50 MG PO; +Vitamin D3 PO
[2022-11-12] MEDS ORDERED: ALBUTEROL/IPRATROPIUM 3 ML NEB NEB PRN (08:15)
[2022-11-12] MEDS ORDERED: ONDANSETRON HCL INJ 2MG/ML 2ML 2 MG/ML VIAL IV PRN (08:15)
[2022-11-12 08:42] LABS: BASOPHILS # (AUTO) 0.1 (0.0-0.1); EOSINOPHILS # (AUTO) 0.2 (0.0-0.4); EOSINOPHILS % 3.1 % (0.0-6.0); HEMATOCRIT 32.9 % (38.2-49.6); HEMOGLOBIN 10.6 g/dL (14.0-18.0); LYMPHOCYTES # (AUTO) 1.6 (1.0-3.2); MEAN CORPUSCULAR HEMOGLOBIN 29.8 pg (28-32); MEAN CORPUSCULAR HGB CONC 32.2 g/dL (31-35); MEAN CORPUSCULAR VOLUME 92.4 fL (81-99); MONOCYTES # (AUTO) 0.9 (0.2-0.8); MONOCYTES % 12.5 % (4.4-11.3); NEUTROPHILS # (AUTO) 4.2 (2.1-6.9); NEUTROPHILS % 60.1 % (38.7-80.0); PLATELET COUNT 252 x10e3/uL (140-360); RED BLOOD COUNT 3.56 x10e6/uL (4.3-5.7); RED CELL DISTRIBUTION WIDTH 13.6 % (11.7-14.4)
[2022-11-12 09:04] LABS: ALBUMIN 3.5 g/dL (3.5-5.0); ANION GAP 13.2 mmol/L (8-16); CALCIUM 9.4 mg/dL (8.4-10.2); CREATININE, SERUM 0.88 mg/dL (0.72-1.25); POTASSIUM 4.2 mmol/L (3.5-5.1)
[2022-11-12 09:19] LABS: MAGNESIUM 2.1 MG/DL (1.3-2.1)
[2022-11-12 09:40] LABS: THYROID STIMULATING HORMONE 1.564 uIU/mL (0.350-4.940)
[2022-11-12] MEDS: FUROSEMIDE INJ 10 MG/ML 4 ML VIAL IV SCH ×2 (10:07→22:19)
[2022-11-12] MEDS: DOCUSATE SODIUM 100 MG CAP PO SCH (10:07)
[2022-11-12] MEDS: SENNOSIDES 8.6 MG TAB PO SCH (10:07)
[2022-11-12] MEDS: BETAMETHASONE/CLOTRIMAZOLE CR 15 GM TUBE TOP SCH (18:00)
[2022-11-12] MEDS: PREDNISONE 10 MG TAB PO SCH (22:18)
[2022-11-13] VITALS (14 sets, daily range): BP systolic 94–123; BP diastolic 58–97; PULSE 53–82; RESP 16–22; TEMP 96.5–98.4; O2SAT 96–100
[2022-11-13] MEDS: ACETAMINOPHEN 325 MG TAB PO PRN (03:55)
[2022-11-13 05:40] LABS: BASOPHILS % 0.7 % (0.0-1.0); EOSINOPHILS % 0.3 % (0.0-6.0); HEMATOCRIT 28.8 % (38.2-49.6); HEMOGLOBIN 9.4 g/dL (14.0-18.0); LYMPHOCYTES # (AUTO) 1.1 (1.0-3.2); LYMPHOCYTES % 18.8 % (18.0-39.1); MEAN CORPUSCULAR HEMOGLOBIN 29.8 pg (28-32); MEAN CORPUSCULAR HGB CONC 32.6 g/dL (31-35); MEAN CORPUSCULAR VOLUME 91.4 fL (81-99); MONOCYTES # (AUTO) 0.4 (0.2-0.8); MONOCYTES % 6.7 % (4.4-11.3); NEUTROPHILS # (AUTO) 4.3 (2.1-6.9); NEUTROPHILS % 73.3 % (38.7-80.0); PLATELET COUNT 204 x10e3/uL (140-360); RED BLOOD COUNT 3.15 x10e6/uL (4.3-5.7); RED CELL DISTRIBUTION WIDTH 13.6 % (11.7-14.4)
[2022-11-13 06:10] LABS: ALBUMIN 2.9 g/dL (3.5-5.0); ANION GAP 13.2 mmol/L (8-16); CALCIUM 8.9 mg/dL (8.4-10.2); CREATININE, SERUM 0.8 mg/dL (0.72-1.25); MAGNESIUM 1.9 MG/DL (1.3-2.1); POTASSIUM 4.2 mmol/L (3.5-5.1)
[2022-11-13] MEDS ORDERED: ONDANSETRON HCL 4 MG ORAL DISINTEGRATING TAB PO PRN (08:45)
[2022-11-13] MEDS: PREDNISONE 10 MG TAB PO SCH ×3 (09:41→21:41)
[2022-11-13] MEDS: SENNOSIDES 8.6 MG TAB PO SCH (09:41)
[2022-11-13] MEDS: FUROSEMIDE INJ 10 MG/ML 4 ML VIAL IV SCH ×2 (09:41→21:42)
[2022-11-13] MEDS: DOCUSATE SODIUM 100 MG CAP PO SCH (09:41)
[2022-11-13] MEDS: BETAMETHASONE/CLOTRIMAZOLE CR 15 GM TUBE TOP SCH ×2 (09:45→17:37)
[2022-11-13] MEDS: Vancomycin IV 1 GM in SODIUM CHLORIDE 0.9% 250ML 250 ML IV SCH (15:46)
[2022-11-13] MEDS: ENOXAPARIN SOD INJ 40 MG/0.4 ML SYR SC SCH (17:29)
[2022-11-13] MEDS: MIRTAZAPINE 15 MG TAB PO SCH (21:41)
[2022-11-14] VITALS (10 sets, daily range): BP systolic 97–130; BP diastolic 46–80; PULSE 55–78; RESP 17–18; TEMP 97.7–98.2; O2SAT 94–100
[2022-11-14] MEDS: Vancomycin IV 1 GM in SODIUM CHLORIDE 0.9% 250ML 250 ML IV SCH (02:23)
[2022-11-14 05:57] LABS: BASOPHILS % 0.3 % (0.0-1.0); HEMATOCRIT 30.5 % (38.2-49.6); HEMOGLOBIN 9.8 g/dL (14.0-18.0); LYMPHOCYTES # (AUTO) 1.3 (1.0-3.2); LYMPHOCYTES % 19.2 % (18.0-39.1); MEAN CORPUSCULAR HEMOGLOBIN 29.5 pg (28-32); MEAN CORPUSCULAR HGB CONC 32.1 g/dL (31-35); MEAN CORPUSCULAR VOLUME 91.9 fL (81-99); MONOCYTES # (AUTO) 0.7 (0.2-0.8); MONOCYTES % 10.1 % (4.4-11.3); NEUTROPHILS # (AUTO) 4.7 (2.1-6.9); NEUTROPHILS % 70.1 % (38.7-80.0); PLATELET COUNT 228 x10e3/uL (140-360); RED BLOOD COUNT 3.32 x10e6/uL (4.3-5.7); RED CELL DISTRIBUTION WIDTH 13.4 % (11.7-14.4)
[2022-11-14 06:21] LABS: ALBUMIN 2.9 g/dL (3.5-5.0); ALBUMIN/GLOBULIN RATIO 0.9 (0.8-2.0); ANION GAP 14.9 mmol/L (8-16); CALCIUM 9.1 mg/dL (8.4-10.2); CREATININE, SERUM 0.88 mg/dL (0.72-1.25); POTASSIUM 3.9 mmol/L (3.5-5.1)
[2022-11-14 06:48] LABS: FERRITIN 90.49 ng/mL (21.81-274.66)
[2022-11-14] MEDS: FUROSEMIDE INJ 10 MG/ML 4 ML VIAL IV SCH ×2 (09:35→21:31)
[2022-11-14] MEDS: SENNOSIDES 8.6 MG TAB PO SCH (09:36)
[2022-11-14] MEDS: PREDNISONE 10 MG TAB PO SCH ×3 (09:36→21:31)
[2022-11-14] MEDS: DOCUSATE SODIUM 100 MG CAP PO SCH (09:36)
[2022-11-14] MEDS: CLOTRIMAZOLE/BETAMETHASONE 45 GM CR TP SCH ×2 (12:30→16:56)
[2022-11-14] MEDS: PIPERACILLIN/TAZOBACTAM 4.5 GM in SODIUM CHLORIDE 0.9% 100 ML IV SCH ×2 (14:58→21:32)
[2022-11-14] MEDS: ACETAMINOPHEN 325 MG TAB PO PRN (15:12)
[2022-11-14] MEDS: ENOXAPARIN SOD INJ 40 MG/0.4 ML SYR SC SCH (16:56)
[2022-11-14] MEDS: MIRTAZAPINE 15 MG TAB PO SCH (21:32)
[2022-11-15] VITALS (9 sets, daily range): BP systolic 96–123; BP diastolic 60–89; PULSE 57–109; RESP 18–22; TEMP 97.5–98.3; O2SAT 95–99
[2022-11-15] MEDS: PIPERACILLIN/TAZOBACTAM 4.5 GM in SODIUM CHLORIDE 0.9% 100 ML IV SCH ×3 (06:19→21:31)
[2022-11-15] MEDS: SENNOSIDES 8.6 MG TAB PO SCH (07:59)
[2022-11-15] MEDS: DOCUSATE SODIUM 100 MG CAP PO SCH (07:59)
[2022-11-15] MEDS: FUROSEMIDE INJ 10 MG/ML 4 ML VIAL IV SCH ×2 (07:59→21:31)
[2022-11-15] MEDS: PREDNISONE 10 MG TAB PO SCH ×3 (07:59→21:31)
[2022-11-15] MEDS: CLOTRIMAZOLE/BETAMETHASONE 45 GM CR TP SCH ×2 (08:00→16:09)
[2022-11-15] MEDS ORDERED: GUAIFENESIN 600 MG TAB PO SCH (12:30)
[2022-11-15] MEDS: ENOXAPARIN SOD INJ 40 MG/0.4 ML SYR SC SCH (16:08)
[2022-11-15] MEDS: SALINE 0.65% NAS SOLN 1 SPRAY BTL SCH (16:08)
[2022-11-15] MEDS: MIRTAZAPINE 15 MG TAB PO SCH (21:31)
[2022-11-15] MEDS: GUAIFENESIN 600 MG TAB PO SCH (21:31)
[2022-11-16] VITALS: BP 99/64; PULSE 65; RESP 20; TEMP 97.8; O2SAT 97
[2022-11-16 04:00] VITALS: BP 109/76; PULSE 52; RESP 20; TEMP 97.9; O2SAT 100
[2022-11-16 05:20] LABS: BASOPHILS % 0.3 % (0.0-1.0); EOSINOPHILS % 0.1 % (0.0-6.0); HEMATOCRIT 35.3 % (38.2-49.6); LYMPHOCYTES # (AUTO) 1.3 (1.0-3.2); LYMPHOCYTES % 18.7 % (18.0-39.1); MEAN CORPUSCULAR HEMOGLOBIN 29.7 pg (28-32); MEAN CORPUSCULAR HGB CONC 31.2 g/dL (31-35); MEAN CORPUSCULAR VOLUME 95.4 fL (81-99); MONOCYTES # (AUTO) 0.5 (0.2-0.8); MONOCYTES % 7.6 % (4.4-11.3); NEUTROPHILS # (AUTO) 5.1 (2.1-6.9); NEUTROPHILS % 72.7 % (38.7-80.0); PLATELET COUNT 246 x10e3/uL (140-360); RED CELL DISTRIBUTION WIDTH 13.2 % (11.7-14.4)
[2022-11-16 05:54] LABS: ALBUMIN 3.1 g/dL (3.5-5.0); ALBUMIN/GLOBULIN RATIO 0.9 (0.8-2.0); ANION GAP 13.7 mmol/L (8-16); CALCIUM 9.2 mg/dL (8.4-10.2); CREATININE, SERUM 0.91 mg/dL (0.72-1.25); POTASSIUM 3.7 mmol/L (3.5-5.1)
[2022-11-16] MEDS: PIPERACILLIN/TAZOBACTAM 4.5 GM in SODIUM CHLORIDE 0.9% 100 ML IV SCH (06:03)
[2022-11-16 08:49] VITALS: BP 126/79; PULSE 104; RESP 16; TEMP 98.1; O2SAT 99
[2022-11-16] MEDS: FUROSEMIDE INJ 10 MG/ML 4 ML VIAL IV SCH (08:53)
[2022-11-16] MEDS: SENNOSIDES 8.6 MG TAB PO SCH (08:53)
[2022-11-16] MEDS: GUAIFENESIN 600 MG TAB PO SCH (08:53)
[2022-11-16] MEDS: DOCUSATE SODIUM 100 MG CAP PO SCH (08:53)
[2022-11-16] MEDS: PREDNISONE 10 MG TAB PO SCH (08:54)
[2022-11-16 09:00] VITALS: BP 126/79; PULSE 104; RESP 16; TEMP 98.1; O2SAT 99
[2022-11-16] MEDS: CLOTRIMAZOLE/BETAMETHASONE 45 GM CR TP SCH (09:00)
[2022-11-16] MEDS ORDERED: TAMSULOSIN HCL 0.4 MG CAP PO SCH (09:00)
[2022-11-16] MEDS: SALINE 0.65% NAS SOLN 1 SPRAY BTL SCH (09:00)
[2022-11-16] MEDS ORDERED: POLYETHYLENE GLYCOL 3350 17 GM PACK PO SCH (09:00)
[2022-11-16] MEDS ORDERED: APIXABAN 5 MG TABLET PO SCH (09:00)
[2022-11-16 10:45] VITALS: PULSE 66; RESP 18; O2SAT 96
[2022-11-16 11:43] VITALS: BP 114/64; PULSE 61; RESP 18; TEMP 97.5; O2SAT 100
[2022-11-16] MEDS ORDERED: COMPRESSION TH1 EACH TOP (12:36)
[2022-11-16] MEDS ORDERED: PREDNISONE10 MG PO (12:44)
[2022-11-16] MEDS ORDERED: BUMETANIDE1 MG PO (12:44)
[2022-11-16] MEDS ORDERED: AMOX TR-K CLV1 EAC2 PO (12:44)
[2022-11-16] MEDS ORDERED: MIRTAZAPINE15 MG PO (12:44)
[2022-11-16] MEDS ORDERED: FUROSEMIDE 40 MG TAB PO SCH (21:00)
== END 2022-11-16 15:00 | disposition home or self-care (01) | DRG 603 ==
LOC: MED/SURG2 07:25 → EDSTATUS 07:29
PROVIDERS: ADMIT Internal Medicine; ATTEND Internal Medicine
DX: L03.115 Cellulitis of right lower limb (principal); L03.116 Cellulitis of left lower limb; I10 Essential (primary) hypertension; I48.0 Paroxysmal atrial fibrillation; N40.1 Benign prostatic hyperplasia with lower urinary tract symptoms; R35.0 Frequency of micturition; K21.9 Gastro-esophageal reflux disease without esophagitis; I25.10 Atherosclerotic heart disease of native coronary artery without angina pectoris; J43.9 Emphysema, unspecified; F32.A Depression, unspecified; E78.5 Hyperlipidemia, unspecified; D64.9 Anemia, unspecified; I51.7 Cardiomegaly; B96.5 Pseudomonas (aeruginosa) (mallei) (pseudomallei) as the cause of diseases classified elsewhere; L30.9 Dermatitis, unspecified; I87.8 Other specified disorders of veins; Z85.46 Personal history of malignant neoplasm of prostate; Z20.822 Contact with and (suspected) exposure to COVID-19; Z92.3 Personal history of irradiation; Z79.01 Long term (current) use of anticoagulants
CPT/HCPCS: 0223U; 36415; 71045; 76882; 80053; 82607; 82728; 83540; 83605; 83735; 83880; 84443; 84466; 85025; 87040; 93005; 93970; 94640; 94799; J0692; J1650; J1940; J2543; J7050; J7512